=== PATIENT | female | born 1970 | race Caucasian/White ===

== ENCOUNTER 2019-11-28 11:58 | Inpatient (IN) | payer OTHER, SELFPAY ==
[2019-11-28] VITALS (14 sets, daily range): BP systolic 95–140; BP diastolic 40–81; PULSE 90–110; RESP 16–20; TEMP 36.1–36.6; O2SAT 92–100; BMI 53.8
--- NOTE | ~2019-11-28 | US_ITS ---
US breast RT limited 11/29/2019 09:25 Indication: Right breast erythema Procedure: High-resolution ultrasound of the right breast Comparison: No prior studies for comparison. Findings: In the area of palpable concern at 3:00, 3 cm from the nipple, there is an ill-defined hypo echoic area superficially, likely representing phlegmonous change. No discrete mass or fluid collecti on. No evidence for abscess. Impression: 1: Ill-defined hypoechoic area in the area of palpable concern, likely phlegmonous/inflammatory farrell e. No discrete abscess. Recommend follow-up ultrasound in 3 months to assess for resolution following appropriate therapy. BI-RADS CATEGORY 3-PROBABLY BENIGN FINDING Reviewed, dictated and finalized at location A. Impression: 1: Ill-defined hypoechoic area in the area of palpable concern, likely phlegmon ous/inflammatory change. No discrete abscess. Recommend follow-up ultrasound in 3 months to assess for resolution following appropriate therapy. BI-RADS CATEGORY 3-PROBABLY BENIGN FINDING
--- NOTE | ~2019-11-28 | US_ITS ---
EXAMINATION: US soft tissue buttock RT EXAM DATE: 11/30/2019 10:32 INDICATION: Erythematous tender nodule. TECHNIQUE: Multiple grayscale and Doppler images of the symptomatic right buttock. were obtained (by a technologist who performed the scan) and subsequently reviewed. There is no prior study for compar nan. FINDINGS: Scanning in the area of clinical concern right buttock demonstrates very superficial region measuring 1.7 cm diameter by 6 mm thickness which is peripherally hypoechoic, centrally isoechoic and has scat tered echogenic foci without dirty shadowing. This is nonspecific soft tissue region. Most of the brenda tral echogenicity matches the other subcutaneous fat. No internal vascularity specifically demonstrat ed. IMPRESSION: Small subcutaneous nonspecific soft tissue region. Could be small region of fat necrosis, focal phlegmonous region, or less likely ectopic soft tissue. Clinical correlation. No abscess. Reviewed, dictated and finalized at location A. IMPRESSION: Small subcutaneous nonspecific soft tissue region. Could be small r egion of fat necrosis, focal phlegmonous region, or less likely ectopic soft ti ssue. Clinical correlation. No abscess.
--- NOTE | 2019-11-28 12:06 | ECG_ITS ---
Measurements Intervals [place] Rate: 110 P: 31 WI: 164 QRS: -39 QRSD: 85 T: 16 QT: 325 QTc: 440 Interpretive Statements SINUS TACHYCARDIA LOW QRS VOLTAGE IN PRECORDIAL LEADS CONSIDER INFERIOR INFARCT, AGE INDETERMINATE EXTENSIVE ANTERIOR INFARCT, AGE INDETERMINATE HIGH LATERAL INFARCT, AGE INDETERMINATE ABNORMAL ECG Electronically Signed On 11-28-2019 16:25:14 CDT by Ever Ferrera D.O.
[2019-11-28 12:09] LABS: Glucose Point of Care 442 (65-105)
--- NOTE | 2019-11-28 12:10 | ED.RECABL ---
HPI - Recheck/Abnormal Lab/Rx General Chief Complaint: Recheck/Abnormal Lab/Rx Stated Complaint: cant sleep/poor appetite Time Seen by Provider: 11/28/19 12:02 History of Present Illness HPI narrative: Sent in by her PCP for critical labs. She denies any symptoms and does not know what labs were done. She saw her PCP for a yeast infection of a few months and had labs drawn 4 days ago. She believes that the labs were related to her blood sugar. She has a h/o type 2 DM, currently untreated. Related Data Home Medications Medication Instructions Recorded Confirmed atorvastatin 80 mg PO DAILY 11/28/19 11/28/19 clopidogrel 75 mg PO DAILY 11/28/19 11/28/19 ergocalciferol (vitamin D2) 50,000 unit PO DAILY 11/28/19 11/28/19 [Vitamin D2] losartan 100 mg PO DAILY 11/28/19 11/28/19 Allergies Allergy/AdvReac Type Severity Reaction Status Date / Time No Known Allergies Allergy Mild Unverified 11/28/19 12:10 Review of Systems Review of Systems: All systems reviewed & are unremarkable except as noted in HPI and below Constitutional: Constitutional: Denies fever(s) Cardiovascular: Cardiovascular: Denies chest pain Respiratory: Respiratory: Denies dyspnea Gastrointestinal: Gastrointestinal: Denies abdominal pain, Denies nausea and Denies vomiting Genitourinary: Genitourinary: Denies dysuria and Reports vaginal discharge Neurologic: Denies numbness and Denies weakness Endocrine: Endocrine: Denies polydipsia and Denies polyuria [facility] Past Medical History Medical History Diabetes mellitus Family History Family History Mother Family history of heart disease in male family member before age 55 Other Cerebrovascular accident Diabetes mellitus Family history of malignant neoplasm Hypertension Social History Social History Alcohol intake: never Gender identity (if verbalized by the patient): Female Exam Const: General: no acute distress and alert Nutritional Appearance: obese morbidly obese Orientation/consciousness: patient oriented x3 HENMT: Head: normal to inspection Neck: Neck: normal visual inspection and no lymphadenopathy Chest: Chest palpation & inspection: no tenderness Other: 2 cm area of erythema and enduration to right breast. Resp: Effort & Inspection: normal respiratory effort Auscultation: clear to auscultation bilaterally, no rales, no rhonchi and no wheezes Cardio: Jugular venous distension: no JVD Rate: regular rate Rhythm: regular rhythm Heart sounds: no murmurs GI: Inspection: non-distended GI Palp: Yes Soft to palpation and No Tenderness to palpation present (GI) Skin: General skin exam: normal color Neuro: General: patient oriented x3 and moves all extremities Speech: normal speech Extrem: General: no edema Psych: Appearance: well kempt Affect: normal affect Course Vital Signs Vital signs: Vital Signs Temperature 36.5 C 11/28/19 12:03 Pulse Rate 106 H 11/28/19 12:03 Temperature 36.5 C 11/28/19 12:03 Pulse Rate 90 11/28/19 16:56 Respiratory Rate 16 11/28/19 16:56 Blood Pressure 103/62 11/28/19 16:56 Pulse Oximetry 96 11/28/19 16:56 Procedures Abscess I/D chest: Date of Incision: 11/28/19 Time of Incision: 14:36 Side (if applicable): right Local Anesthetic: lidocaine 1% and with epi Amount of anesthesia used (mL): 3 Technique: needle aspiration Amount of fluid expressed (mL): 2 Irrigation: No Packing used?: none I&D Results: Pus MDM - Recheck/Abnormal Lab/Rx MDM Narrative Medical decision making narrative: She has significantly elevated glucose with breast abscess and yeast infection, bth are likely complications of her untreated DM. I will plan to admit so she can have treatment for her diabet
[2019-11-28 12:31] LABS: Basophils Percent Auto 0.4 % (0.2-1.2); Eosinophils Absolute Auto 0.1 K/mm3 (0-0.3); Eosinophils Percent Auto 0.8 % (0-4.4); Hematocrit 47.1 % (37.0-47.0); Hemoglobin 15.4 g/dL (12.0-15.0); Immature Granulocyte Absolute 0.02 K/mm3 (0.00-0.031); Immature Granulocyte Percent A 0.2 % (0-0.5); Lymphocytes Absolute Auto 1.99 K/mm3 (0.9-3.2); Lymphocytes Percent Auto 21.6 % (18.3-44.2); Mean Corpuscular HGB Conc 32.7 g/dl (32-36); Mean Corpuscular Hemoglobin 29.2 pg (26-34); Mean Corpuscular Volume 89.2 fl (80-100); Monocytes Absolute Auto 0.9 K/mm3 (0.1-0.6); Monocytes Percent Auto 9.8 % (2.6-8.5); Neutrophils Absolute Auto 6.2 K/mm3 (1.3-6.7); Neutrophils Percent Auto 67.2 % (45.5-73.1); Platelet Count Result 291 k/mm3 (150-375); Red Blood Count 5.28 M/mm3 (4.2-5.4); Red Cell Distribution Width 14.2 % (11.5-14.5); White Blood Count 9.2 K/mm3 (4.5-10.0)
[2019-11-28 12:42] LABS: Lactic Acid Reflex 1.6 mmol/L (0.7-2.1)
[2019-11-28 12:43] LABS: Alanine Aminotransferase 36 U/L (4-35); Alkaline Phosphatase 119 U/L (38-126); Anion Gap 15.2 mmol/L (7-16); Aspartate Amino Transferase 28 U/L (14-36); Blood Urea Nitrogen 13 mg/dL (7-17); Calcium 10.5 mg/dL (8.4-10.2); Carbon Dioxide 30 mmol/L (22-30); Chloride 91 mmol/L (98-107); Estimated CRCL calculation 131 ml/min; Estimated Glomerular Filt Rate > 60; Glucose 420 mg/dL (65-105); Potassium 4.2 mmol/L (3.4-5.0); Sodium 132 mmol/L (137-145)
[2019-11-28] MEDS: SODIUM CHLORIDE 0.9% IV 1,000 ML 999 ML IV CONT (12:53)
[2019-11-28 12:55] LABS: Beta-Hydroxybutyrate/Acetoacetate 2.26 mmol/L (0.02-0.27)
[2019-11-28 13:08] LABS: Add Urine Microscopic? YES; Appearance Urine Cloudy (Clear); Bacteria Urine Trace /hpf; Bilirubin Urine Negative (Negative); Blood Urine 2+ (Negative); Budding Yeast Urine Present /hpf; Color Urine Straw (Yellow); Glucose Urine UA 3+ mg/dL (Negative); Ketones Urine 1+ mg/dL (Negative); Leukocyte Esterase Ur 1+ LEU/UL (Negative); Nitrate Urine Negative (Negative); Protein Urine Negative (Negative); Specific Grav Ur 1.031 (1.001-1.035); Squamous Epithelial Cell Urine Many /hpf (Few); Urobilinogen Urine Negative mg/dL (<2.0); WBC Urine 16-20 /hpf
[2019-11-28] MEDS: LACTATED RINGERS 1,000 ML 125 ML IV CONT (15:34)
[2019-11-28] MEDS: INSULIN HUMAN REGULAR (*BKC) 100 UNITS/ML 10 UNITS IV PUSH (16:52)
[2019-11-28 17:02] LABS: Glucose Point of Care 367 (65-105)
--- NOTE | 2019-11-28 17:19 | ADMGEN ---
This patient, Lacey Elias, was admitted to Medical Room 243-. Patient/family oriented to hospital policies and general routines including ID bracelet, bed and alarms, visiting hours, pain management, procedures, bathroom and other care routines, personal items, smoking policy, room service/diet, and visiting hours. Valuables list has been completed. Information on how to activate the Rapid Response Team has been discussed. Patient/Family are encouraged to report perceived risks to care and to ask questions if they do not understand what they are told or what they should do.
[2019-11-28 18:16] LABS: Glucose Point of Care 248 (65-105)
--- NOTE | 2019-11-28 19:33 | PM.IMHP ---
H&P: HPI History of Present Illness Date/Time: 11/28/19 19:33 Chief complaint: diabetic hyperglycemia/breast abscess/yeast infect Narrative: Lacey Elias is a 49 year old female The patient came to the emergency room because she was having difficulty sleeping. She tells me that she had a phone conversation with her primary care office who then ordered some labs for her. She was told that her labs were abnormal today and that she needed to come to the emergency room. The patient stated that she has been doing dealing with I use infection in the vaginal area. She stated that she tried Monistat and also Diflucan and it did help but she has been itching quite frequently. She is also having urinary frequency and urgency. She stated that she has been thirst ear than normal. She also stated that she feels very hungry but nothing tastes good. She stated that she was diabetic about 4 -5 years ago when she went on a low concentrated sweet diet was taken off of her pills at that time. The patient stated that she has not been watching her diet and then she has been ordering food from [employer]-which is fast food. She stated that she has been eating a lot of pasta. She felt that she might have a blood sugar problem but had not been checking it. She also stated that she usually has pimples on her breast and that she just pop summer self and they go away. However she now has a pimple at the 3 o'clock position on the right breast. The patient tells me that the ER doctor drained with a needle. No culture was obtained at that time. There is no drainage at this time. The area is red and may be about quarter-size. She was started on vancomycin and I added Primaxin. Her white count is normal. However her blood sugar was noted to be 440 to in the and 367 and in the last 248. It was reported that her anion gap was 11. Her behop was noted to be 2.26. The patient was started on IV fluids. She was given 10 units of regular insulin IV and IV bolus of normal saline. I have spent approximately 1 hour the patient date of service is 11/28/2019 Review of Systems Review of Systems: All systems reviewed & are unremarkable except as noted in HPI and below Constitutional: Constitutional: Reports as per HPI and Reports no additional constitutional complaints Eyes: Eyes: Reports as per HPI and Reports no additional eye complaints ENT: Reports system reviewed and no additional complaints, except as documented and Reports Normal hearing present Cardiovascular: Cardiovascular: Reports no additional cardiovascular complaints Respiratory: Respiratory: Reports no additional respiratory complaints and Reports no additional respiratory complaints Gastrointestinal: Gastrointestinal: Reports as per HPI and Reports no additional gastrointestinal complaints Musculoskeletal: Musculoskeletal: Reports no additional musculoskeletal complaints Integumentary/Breasts: Skin/Breast: Reports system reviewed and no additional complaints, except as docu and Reports as per HPI Neurologic: Reports system reviewed and no additional complaints, except as documented, Reports as per HPI and Reports Normal hearing present Psychiatric: Psychiatric: Reports no additional psychiatric complaints and Reports as per HPI Endocrine: Endocrine: Reports no additional endocrine complaints Hematologic/Lymphatic: Hematologic/Lymphatic: Reports no additional hematologic/lymphatic complaints Allergic/Immunologic: Allergic/Immunologic: Reports no additional allergic/immunologic complaints [facility] Past Medical History Medical History (Updated 11/28/19 @ 19:57 by Vaishali Burr NP) CAD (coronary artery disease) Diabetes mellitus History of 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
[2019-11-28] MEDS: IMIPENEM/CILASTATIN SODIUM 250 MG in DEXTROSE 5% 100 ML 300 MG IVPB (20:00)
[2019-11-28] MEDS: FLUCONAZOLE 150 MG TABLET PO (20:00)
[2019-11-28] MEDS: MICONAZOLE NITRATE 2% VAGINAL CREAM 45 GM TUBE 1 APPFUL VAGINAL (20:01)
[2019-11-28 20:36] LABS: Glucose Point of Care 335 (65-105)
[2019-11-28] MEDS: ATORVASTATIN 40 MG TABLET 80 MG PO (22:04)
[2019-11-29] MEDS: IMIPENEM/CILASTATIN SODIUM 250 MG in DEXTROSE 5% 100 ML 300 MG IVPB ×4 (01:38→23:33)
[2019-11-29 05:07] LABS: Basophils Percent Auto 0.1 % (0.2-1.2); Eosinophils Absolute Auto 0.1 K/mm3 (0-0.3); Eosinophils Percent Auto 1.4 % (0-4.4); Hematocrit 40.3 % (37.0-47.0); Hemoglobin 13.2 g/dL (12.0-15.0); Immature Granulocyte Absolute 0.03 K/mm3 (0.00-0.031); Immature Granulocyte Percent A 0.4 % (0-0.5); Lymphocytes Percent Auto 26.8 % (18.3-44.2); Mean Corpuscular HGB Conc 32.8 g/dl (32-36); Mean Corpuscular Hemoglobin 29.4 pg (26-34); Mean Corpuscular Volume 89.8 fl (80-100); Mean Platelet Volume 11.7 fl (7.4-10.4); Monocytes Absolute Auto 0.6 K/mm3 (0.1-0.6); Neutrophils Absolute Auto 4.4 K/mm3 (1.3-6.7); Neutrophils Percent Auto 62.3 % (45.5-73.1); Platelet Count Result 238 k/mm3 (150-375); Red Blood Count 4.49 M/mm3 (4.2-5.4); Red Cell Distribution Width 14.4 % (11.5-14.5); White Blood Count 7.1 K/mm3 (4.5-10.0)
[2019-11-29 05:20] LABS: Alanine Aminotransferase 26 U/L (4-35); Albumin Level 2.9 g/dL (3.5-5.1); Alkaline Phosphatase 77 U/L (38-126); Anion Gap 13.8 mmol/L (7-16); Aspartate Amino Transferase 23 U/L (14-36); Bilirubin,Total 0.8 mg/dL (0.2-1.3); Blood Urea Nitrogen 8 mg/dL (7-17); Calcium 8.4 mg/dL (8.4-10.2); Carbon Dioxide 26 mmol/L (22-30); Chloride 96 mmol/L (98-107); Estimated CRCL calculation 153 ml/min; Estimated Glomerular Filt Rate > 60; Glucose 317 mg/dL (65-105); Magnesium 1.8 mg/dL (1.6-2.3); Potassium 3.8 mmol/L (3.4-5.0); Sodium 132 mmol/L (137-145)
[2019-11-29 05:21] LABS: Hemoglobin A1C > 14.0 % (<5.7)
[2019-11-29 06:00] VITALS: BP 136/72; PULSE 81; RESP 20; TEMP 36.4; O2SAT 96
[2019-11-29 07:08] LABS: Thyroid Stimulating Hormone Reflex 0.709 uIU/mL (0.465-4.68)
[2019-11-29 08:00] LABS: Hematocrit 41.2 % (37.0-47.0); Hemoglobin 13.7 g/dL (12.0-15.0); Mean Corpuscular HGB Conc 33.3 g/dl (32-36); Mean Corpuscular Hemoglobin 29.7 pg (26-34); Mean Corpuscular Volume 89.2 fl (80-100); Mean Platelet Volume 11.3 fl (7.4-10.4); Platelet Count Result 222 k/mm3 (150-375); Red Blood Count 4.62 M/mm3 (4.2-5.4); Red Cell Distribution Width 14.4 % (11.5-14.5); White Blood Count 6.7 K/mm3 (4.5-10.0)
[2019-11-29 08:02] LABS: Glucose Point of Care 304 (65-105)
[2019-11-29 08:13] LABS: Anion Gap 12.8 mmol/L (7-16); Blood Urea Nitrogen 7 mg/dL (7-17); Calcium 8.6 mg/dL (8.4-10.2); Carbon Dioxide 27 mmol/L (22-30); Chloride 95 mmol/L (98-107); Estimated CRCL calculation 153 ml/min; Estimated Glomerular Filt Rate > 60; Glucose 307 mg/dL (65-105); Potassium 3.8 mmol/L (3.4-5.0); Sodium 131 mmol/L (137-145)
[2019-11-29] MEDS: ASPIRIN 81 MG ENTERIC TABLET PO (08:32)
[2019-11-29] MEDS: CLOPIDOGREL BISULFATE 75 MG TABLET PO (08:32)
[2019-11-29] MEDS: LOSARTAN POTASSIUM 100 MG TABLET PO (08:32)
[2019-11-29] MEDS: INSULIN GLARGINE (*BKC) 100 UNITS/ML 21 UNITS SUB-Q (08:36)
[2019-11-29] MEDS: INSULIN ASPART (*BKC) 100 UNITS/ML SUB-Q ×3 (08:38→18:43)
[2019-11-29] MEDS: metFORMIN HCL 500 MG TABLET PO ×2 (09:10→18:44)
[2019-11-29] MEDS: IMIPENEM/CILASTATIN SODIUM 250 MG in DEXTROSE 5% 100 ML 200 MG IVPB (12:02)
[2019-11-29] MEDS: MULTIVITAMINS /C LUTEIN (CENTRUM SILVER) TABLET *BKC 1 TAB PO (12:03)
[2019-11-29 12:06] LABS: Glucose Point of Care 310 (65-105)
--- NOTE | 2019-11-29 13:37 | PM.IMPN ---
Progress Note: A&P Assessment and Plan (1) Mastitis, right, acute: Code(s): N61.0 - Mastitis without abscess Status: Acute Assessment and Plan: no abscess by ultrasound continue vancomycin and Primaxin as she is improving clinically (2) CAD (coronary artery disease): Qualifiers: Coronary Disease-Associated Artery/Lesion type: [place] artery [place] vs. transplanted heart: [place] heart Associated angina: without angina Qualified Code(s): I25.10 - Atherosclerotic heart disease of [place] coronary artery without angina pectoris Code(s): I25.10 - Atherosclerotic heart disease of [place] coronary artery without angina pectoris Status: Chronic Assessment and Plan: currently without symptoms (3) Hypertension: Qualifiers: Hypertension type: unspecified Qualified Code(s): I10 - Essential (primary) hypertension Code(s): I10 - Essential (primary) hypertension Status: Chronic Assessment and Plan: controlled (4) Yeast infection: Code(s): B37.9 - Candidiasis, unspecified Status: Acute Assessment and Plan: fluconazole given 11/27 (5) Diabetes mellitus with hyperglycemia: Qualifiers: Diabetes mellitus [facility] insulin use: without buttermaker helper use Diabetes mellitus type: type 2 Qualified Code(s): E11.65 - Type 2 diabetes mellitus with hyperglycemia Code(s): E11.65 - Type 2 diabetes mellitus with hyperglycemia Status: Chronic Assessment and Plan: diabetic diet basal and sliding scale insulin with metformin Subjective Date/time seen: 11/29/19 13:37 Interval history: Admitted 11/27 for right breast abscess. Needle drainage in ED. U/s done today. Denied pain. No cp or sob. Legs were swollen. Better now. Does have vaginal itching. Mild dysuria. Hx chronic yeast infection. Review of Systems Review of Systems: All systems reviewed & are unremarkable except as noted in HPI and below Exam Narrative: Exam Narrative: HEENT: EOMI, PERRL, sclerae nonicteric, pharyngeal mucosa pink and intact NECK: No JVD CHEST: Clear to auscultation. Normal effort. HEART: NL S1/S2, regular ABDOMEN: BS+, soft, nontender, no mass, no bruits EXTREMITIES: No cyanosis, 1+ Pretibial edema NEUROLOGIC: CN intact and symmetric to inspection. MUSCULOSKELETAL: Tone and strength symmetric. PSYCH: Alert. Oriented to person, place, and time. SKIN: about 2cm erythematous, minimally tender nodule right breast with dried serosanguinous discharge with small puncture wound at apex Objective Data Vital Signs Vital Signs: Vital Signs - 24 hr 11/28/19 13:47 11/28/19 14:00 11/28/19 14:15 Temperature Pulse Rate 97 95 Respiratory Rate 17 16 Blood Pressure 102/68 95/62 L 97/56 L Pulse Oximetry 99 92 11/28/19 14:30 11/28/19 15:00 11/28/19 16:56 Temperature Pulse Rate 95 90 90 Respiratory Rate 18 17 16 Blood Pressure 99/62 L 106/40 L 103/62 Pulse Oximetry 96 95 96 11/28/19 17:10 11/28/19 22:00 11/29/19 06:00 Temperature 97.0 F L 97.8 F 97.6 F Pulse Rate 100 96 81 Respiratory Rate 18 20 20 Blood Pressure 138/72 140/70 136/72 Pulse Oximetry 100 95 96 Intake/Output Intake/Output: Intake & Output 11/26/19 11/27/19 11/28/19 11/29/19 23:59 23:59 23:59 23:59 Intake Total 1840 1560 Output Total 1750 Balance 1840 -190 Meds/Results Medications: Active Medications Generic Name Dose Route Start Last Admin Trade Name Freq PRN Reason Stop Dose Admin Aspirin 81 mg 11/29/19 09:00 11/29/19 08:32 Aspirin Ec PO 81 mg DAILY QUINN Administration Atorvastatin Calcium 80 mg 11/28/19 21:00 11/28/19 22:04 Lipitor PO 80 mg HS QUINN Administration Clopidogrel Bisulfate 75 mg 11/29/19 09:00 11/29/19 08:32 Plavix PO 75 mg DAILY QUINN Administration Dextrose 12.5 gm 11/28/19 19:37 Dextrose 50% Syringe IV PUSH PRN PRN Hypoglycemia Protocol Ergocalcifero
[2019-11-29 14:00] VITALS: BP 111/62; PULSE 88; RESP 22; TEMP 36.6; O2SAT 95
[2019-11-29 18:20] LABS: Glucose Point of Care 295 (65-105)
[2019-11-29] MEDS: ATORVASTATIN 40 MG TABLET 80 MG PO (20:21)
[2019-11-29] MEDS: MICONAZOLE NITRATE 2% VAGINAL CREAM 45 GM TUBE 1 APPFUL VAGINAL (20:22)
[2019-11-29 20:46] LABS: Glucose Point of Care 337 (65-105)
[2019-11-29 22:00] VITALS: BP 116/61; PULSE 95; RESP 20; TEMP 36.2; O2SAT 95
[2019-11-30 02:28] LABS: Hemoglobin 13.3 g/dL (12.0-15.0); Mean Corpuscular HGB Conc 32.4 g/dl (32-36); Mean Corpuscular Hemoglobin 29.2 pg (26-34); Mean Corpuscular Volume 89.9 fl (80-100); Platelet Count Result 246 k/mm3 (150-375); Red Blood Count 4.56 M/mm3 (4.2-5.4); Red Cell Distribution Width 14.4 % (11.5-14.5); White Blood Count 7.2 K/mm3 (4.5-10.0)
[2019-11-30 02:38] LABS: Anion Gap 10.5 mmol/L (7-16); Blood Urea Nitrogen 9 mg/dL (7-17); Calcium 8.5 mg/dL (8.4-10.2); Carbon Dioxide 29 mmol/L (22-30); Chloride 97 mmol/L (98-107); Estimated CRCL calculation 130 ml/min; Estimated Glomerular Filt Rate > 60; Glucose 340 mg/dL (65-105); Potassium 3.5 mmol/L (3.4-5.0); Sodium 133 mmol/L (137-145)
[2019-11-30 03:08] LABS: Vancomycin Trough 12.1 ug/mL (10.0-20.0)
[2019-11-30 05:56] VITALS: BP 116/61; PULSE 94; RESP 20; TEMP 35.9; O2SAT 94
[2019-11-30] MEDS: IMIPENEM/CILASTATIN SODIUM 250 MG in DEXTROSE 5% 100 ML 300 MG IVPB ×4 (06:09→23:58)
[2019-11-30 08:08] LABS: Glucose Point of Care 309 (65-105)
[2019-11-30] MEDS: INSULIN ASPART (*BKC) 100 UNITS/ML SUB-Q ×6 (08:21→16:49)
[2019-11-30] MEDS: ASPIRIN 81 MG ENTERIC TABLET PO (08:23)
[2019-11-30] MEDS: CLOPIDOGREL BISULFATE 75 MG TABLET PO (08:23)
[2019-11-30] MEDS: metFORMIN HCL 500 MG TABLET PO ×2 (08:23→16:48)
[2019-11-30] MEDS: INSULIN GLARGINE (*BKC) 100 UNITS/ML 28 UNITS SUB-Q (08:24)
[2019-11-30] MEDS: LOSARTAN POTASSIUM 100 MG TABLET PO (08:25)
[2019-11-30] MEDS: MULTIVITAMINS /C LUTEIN (CENTRUM SILVER) TABLET *BKC 1 TAB PO (08:25)
--- NOTE | 2019-11-30 09:34 | P.PNIM_ITS ---
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 She reports she has a history of pre diabetes and had been on metformin in the past. A1c >14.0. Fasting blood sugar is elevated at 340 today. No evidence of metabolic acidosis. * increase Lantus to 20 units daily * add scheduled NovoLog 5 units with meals * continue metformin * continue sliding scale insulin, Accu-Cheks, and hypoglycemia protocol * continue diabetic diet * consult has been placed a dietitian and certified breastfeeding educator. Recommendations are appreciated. (2) Mastitis, right, acute: Code(s): N61.0 - Mastitis without abscess Status: Acute Assessment and Plan: Underwent incision and drainage by ED physician on 11/27. No evidence of abscess by ultrasound. * continue vancomycin and Primaxin as she is improving clinically (3) Nodule of buttock: Code(s): R22.2 - Localized swelling, mass and lump, trunk Status: Acute Assessment and Plan: Approximately quarter-sized erythematous, tender nodule, similar in appearance to breast nodule in right gluteal sulcus. No drainage or pus. * Wound care consult has been ordered and recommendations are appreciated * will check ultrasound of area to evaluate for abscess or fluid which may need to be drained * continue to monitor the area closely (4) Urinary tract infection: Qualifiers: Urinary tract infection type: acute cystitis Hematuria presence: with hematuria Qualified Code(s): N30.01 - Acute cystitis with hematuria Code(s): N39.0 - Urinary tract infection, site not specified Status: Acute Assessment and Plan: Urine culture is positive for E coli. She is afebrile and without leukocytosis. * continue Primaxin which is appropriate based on sensitivity report. Initiated on 11/27 (5) Hypertension: Qualifiers: Hypertension type: unspecified Qualified Code(s): I10 - Essential (primary) hypertension Code(s): I10 - Essential (primary) hypertension Status: Chronic Assessment and Plan: BP has been well controlled. * Continue losartan (6) Yeast infection: Code(s): B37.9 - Candidiasis, unspecified Status: Acute Assessment and Plan: Probably secondary to uncontrolled blood sugars. She was given a dose of fluconazole on 11/27. * Continue miconazole vaginal applicator (7) CAD (coronary artery disease): Qualifiers: Coronary Disease-Associated Artery/Lesion type: [place] artery [place] vs. transplanted heart: [place] heart Associated angina: without angina Qualified Code(s): I25.10 - Atherosclerotic heart disease of [place] coronary artery without angina pectoris Code(s): I25.10 - Atherosclerotic heart disease of [place] coronary artery without angina pectoris Status: Chronic Assessment and Plan: Stable and currently without symptoms. * Continue aspirin, Plavix, losartan, and atorvastatin Subjective Date/time seen: 11/30/19 09:34 Interval history: Date of service: 11/30/2019 Assuming care for Ms. Elias who has been newly diagnosed with type 2 diabetes
--- NOTE | 2019-11-30 09:34 | PM.IMPN ---
Progress Note: A&P Assessment and Plan (1) Diabetes mellitus with hyperglycemia: Qualifiers: Diabetes mellitus long term care phlebotomist insulin use: without long term care phlebotomist use Diabetes mellitus type: type 2 Qualified Code(s): E11.65 - Type 2 diabetes mellitus with hyperglycemia Code(s): E11.65 - Type 2 diabetes mellitus with hyperglycemia Status: Chronic Assessment and Plan: New diagnosis. She reports she has a history of pre diabetes and had been on metformin in the past. A1c >14.0. Fasting blood sugar is elevated at 340 today. No evidence of metabolic acidosis. increase Lantus to 20 units daily add scheduled NovoLog 5 units with meals continue metformin continue sliding scale insulin, Accu-Cheks, and hypoglycemia protocol continue diabetic diet consult has been placed a dietitian and telehealth nurse educator. Recommendations are appreciated. (2) Mastitis, right, acute: Code(s): N61.0 - Mastitis without abscess Status: Acute Assessment and Plan: Underwent incision and drainage by ED physician on 11/27. No evidence of abscess by ultrasound. continue vancomycin and Primaxin as she is improving clinically (3) Nodule of buttock: Code(s): R22.2 - Localized swelling, mass and lump, trunk Status: Acute Assessment and Plan: Approximately quarter-sized erythematous, tender nodule, similar in appearance to breast nodule in right gluteal sulcus. No drainage or pus. Wound care consult has been ordered and recommendations are appreciated will check ultrasound of area to evaluate for abscess or fluid which may need to be drained continue to monitor the area closely (4) Urinary tract infection: Qualifiers: Urinary tract infection type: acute cystitis Hematuria presence: with hematuria Qualified Code(s): N30.01 - Acute cystitis with hematuria Code(s): N39.0 - Urinary tract infection, site not specified Status: Acute Assessment and Plan: Urine culture is positive for E coli. She is afebrile and without leukocytosis. continue Primaxin which is appropriate based on sensitivity report. Initiated on 11/27 (5) Hypertension: Qualifiers: Hypertension type: unspecified Qualified Code(s): I10 - Essential (primary) hypertension Code(s): I10 - Essential (primary) hypertension Status: Chronic Assessment and Plan: BP has been well controlled. Continue losartan (6) Yeast infection: Code(s): B37.9 - Candidiasis, unspecified Status: Acute Assessment and Plan: Probably secondary to uncontrolled blood sugars. She was given a dose of fluconazole on 11/27. Continue miconazole vaginal applicator (7) CAD (coronary artery disease): Qualifiers: Coronary Disease-Associated Artery/Lesion type: [place] artery [place] vs. transplanted heart: [place] heart Associated angina: without angina Qualified Code(s): I25.10 - Atherosclerotic heart disease of [place] coronary artery without angina pectoris Code(s): I25.10 - Atherosclerotic heart disease of [place] coronary artery without angina pectoris Status: Chronic Assessment and Plan: Stable and currently without symptoms. Continue aspirin, Plavix, losartan, and atorvastatin Subjective Date/time seen: 11/30/19 09:34 Interval history: Date of service: 11/30/2019 Assuming care for Ms. Elias who has been newly diagnosed with type 2 diabetes and had a breast abscess drained in the ED. She is feeling well today. She does complain of a pimple on her right leg near her buttocks that she states is very tender. She noticed the area several days ago, but has not mentioned anything about it until this time. She says it seems like the same pimple that she saw on her breast. She denies any fevers, chills, nausea, vomiting, dizziness, or lightheadedness. Her blood sugars have remained
[2019-11-30 11:51] LABS: Glucose Point of Care 228 (65-105)
[2019-11-30] MEDS: polyethylene glycoL 3350 17 GM POWD.PACK PO (12:00)
[2019-11-30 14:00] VITALS: BP 104/55; PULSE 88; RESP 18; TEMP 36; O2SAT 95
[2019-11-30 16:38] LABS: Glucose Point of Care 248 (65-105)
[2019-11-30] MEDS: DOCUSATE SODIUM 100 MG CAPSULE PO (20:28)
[2019-11-30] MEDS: ATORVASTATIN 40 MG TABLET 80 MG PO (20:28)
[2019-11-30] MEDS: MICONAZOLE NITRATE 2% VAGINAL CREAM 45 GM TUBE 1 APPFUL VAGINAL (20:28)
[2019-11-30 21:09] LABS: Glucose Point of Care 174 (65-105)
[2019-11-30 22:00] VITALS: BP 105/60; PULSE 93; RESP 18; TEMP 36.1; O2SAT 96
[2019-12-01 06:00] VITALS: BP 119/50; PULSE 86; RESP 18; TEMP 36.3; O2SAT 96
[2019-12-01] MEDS: IMIPENEM/CILASTATIN SODIUM 250 MG in DEXTROSE 5% 100 ML 300 MG IVPB ×3 (06:21→18:45)
[2019-12-01 06:34] LABS: Hematocrit 41.4 % (37.0-47.0); Hemoglobin 13.3 g/dL (12.0-15.0); Mean Corpuscular HGB Conc 32.1 g/dl (32-36); Mean Corpuscular Volume 90.4 fl (80-100); Mean Platelet Volume 11.3 fl (7.4-10.4); Platelet Count Result 240 k/mm3 (150-375); Red Blood Count 4.58 M/mm3 (4.2-5.4); Red Cell Distribution Width 14.3 % (11.5-14.5); White Blood Count 6.2 K/mm3 (4.5-10.0)
[2019-12-01 06:47] LABS: Anion Gap 7.9 mmol/L (7-16); Blood Urea Nitrogen 6 mg/dL (7-17); Calcium 8.3 mg/dL (8.4-10.2); Carbon Dioxide 28 mmol/L (22-30); Chloride 101 mmol/L (98-107); Estimated CRCL calculation 153 ml/min; Estimated Glomerular Filt Rate > 60; Glucose 288 mg/dL (65-105); Potassium 3.9 mmol/L (3.4-5.0); Sodium 133 mmol/L (137-145)
[2019-12-01 07:28] LABS: Glucose Point of Care 285 (65-105)
[2019-12-01 07:42] LABS: Glucose Point of Care 289 (65-105)
[2019-12-01] MEDS: INSULIN ASPART (*BKC) 100 UNITS/ML SUB-Q ×5 (07:43→16:56)
[2019-12-01] MEDS: metFORMIN HCL 500 MG TABLET PO ×2 (07:51→16:55)
[2019-12-01] MEDS: ASPIRIN 81 MG ENTERIC TABLET PO (07:51)
[2019-12-01] MEDS: CLOPIDOGREL BISULFATE 75 MG TABLET PO (07:51)
[2019-12-01] MEDS: MULTIVITAMINS /C LUTEIN (CENTRUM SILVER) TABLET *BKC 1 TAB PO (07:52)
[2019-12-01] MEDS: LOSARTAN POTASSIUM 100 MG TABLET PO (07:52)
[2019-12-01] MEDS: DOCUSATE SODIUM 100 MG CAPSULE PO ×2 (07:52→21:53)
[2019-12-01] MEDS: polyethylene glycoL 3350 17 GM POWD.PACK PO (07:53)
[2019-12-01] MEDS: INSULIN GLARGINE (*BKC) 100 UNITS/ML 28 UNITS SUB-Q (07:54)
--- NOTE | 2019-12-01 10:26 | P.PNIM_ITS ---
Progress Note: A&P Assessment and Plan (1) Diabetes mellitus with hyperglycemia: Qualifiers: Diabetes mellitus buttermaker helper insulin use: without nursing home use Diabetes mellitus type: type 2 Qualified Code(s): E11.65 - Type 2 diabetes mellitus with hyperglycemia Code(s): E11.65 - Type 2 diabetes mellitus with hyperglycemia Status: Chronic Assessment and Plan: New diagnosis. She reports she has a history of pre diabetes and had been on metformin in the past. A1c >14.0. Fasting blood sugar improved today. No evidence of metabolic acidosis. * continue Lantus to 28 units daily * continue scheduled NovoLog 5 units with meals * continue metformin * continue sliding scale insulin, Accu-Cheks, and hypoglycemia protocol * continue diabetic diet * consult has been placed a dietitian and nursing educator. Recommendations are appreciated. (2) Open wound of thigh: Qualifiers: Encounter type: initial encounter Laterality: right Qualified Code(s): S71.101A - Unspecified open wound, right thigh, initial encounter Code(s): S71.109A - Unspecified open wound, unspecified thigh, initial encounter Status: Acute Assessment and Plan: She has approximately quarter-sized erythematous, tender nodule in gluteal sulcus with centralized necrosis. There is no drainage or purulence. Ultrasound did not show definitive abscess. Suspect this is related to her uncontrolled DM. * Wound care consult has been ordered and recommendations are appreciated * Place consult to general surgery for possible debridement of wound. Appreciate recommendations. * Would culture is not obtainable at this time as there is no drainage * Continue IV primaxin and vancomycin (3) Mastitis, right, acute: Code(s): N61.0 - Mastitis without abscess Status: Acute Assessment and Plan: Right breast approximately dime sized nodule for which she underwent I&D by ED physician on 11/27. She now has a similar formation on the left breast in the axillary region. * Wound care is following and recommendations are appreciated * Continue IV antibiotics at this time (4) Urinary tract infection: Qualifiers: Hematuria presence: with hematuria Urinary tract infection type: acute cystitis Qualified Code(s): N30.01 - Acute cystitis with hematuria Code(s): N39.0 - Urinary tract infection, site not specified Status: Acute Assessment and Plan: Urine culture is positive for E coli. She is afebrile and without leukocytosis. * continue Primaxin which is appropriate based on sensitivity report. Initiated on 11/27 (5) Hypertension: Qualifiers: Hypertension type: unspecified Qualified Code(s): I10 - Essential (primary) hypertension Code(s): I10 - Essential (primary) hypertension Status: Chronic Assessment and Plan: BP has been well controlled. * Continue losartan (6) Yeast infection: Code(s): B37.9 - Candidiasis, unspecified Status: Acute Assessment and Plan: Probably secondary to uncontrolled blood sugars. She was given a dose of fluconazole on 11/27. * Continue miconazole vaginal applicator (day 4 of 7) (7) CAD (coronary artery disease): Qualifiers: Associated angina: without angina Coronary Disease-Associated Artery/Lesion type: [place] artery [place] vs. transplanted heart: [place] heart Qualified Code(s): I25.10 - Atherosclerotic heart disease of [place] coronary artery without angina [place]
--- NOTE | 2019-12-01 10:26 | PM.IMPN ---
Progress Note: A&P Assessment and Plan (1) Diabetes mellitus with hyperglycemia: Qualifiers: Diabetes mellitus intermediate accountant insulin use: without usp use Diabetes mellitus type: type 2 Qualified Code(s): E11.65 - Type 2 diabetes mellitus with hyperglycemia Code(s): E11.65 - Type 2 diabetes mellitus with hyperglycemia Status: Chronic Assessment and Plan: New diagnosis. She reports she has a history of pre diabetes and had been on metformin in the past. A1c >14.0. Fasting blood sugar improved today. No evidence of metabolic acidosis. continue Lantus to 28 units daily continue scheduled NovoLog 5 units with meals continue metformin continue sliding scale insulin, Accu-Cheks, and hypoglycemia protocol continue diabetic diet consult has been placed a dietitian and nurse educator. Recommendations are appreciated. (2) Open wound of thigh: Qualifiers: Encounter type: initial encounter Laterality: right Qualified Code(s): S71.101A - Unspecified open wound, right thigh, initial encounter Code(s): S71.109A - Unspecified open wound, unspecified thigh, initial encounter Status: Acute Assessment and Plan: She has approximately quarter-sized erythematous, tender nodule in gluteal sulcus with centralized necrosis. There is no drainage or purulence. Ultrasound did not show definitive abscess. Suspect this is related to her uncontrolled DM. Wound care consult has been ordered and recommendations are appreciated Place consult to general surgery for possible debridement of wound. Appreciate recommendations. Would culture is not obtainable at this time as there is no drainage Continue IV primaxin and vancomycin (3) Mastitis, right, acute: Code(s): N61.0 - Mastitis without abscess Status: Acute Assessment and Plan: Right breast approximately dime sized nodule for which she underwent I&D by ED physician on 11/27. She now has a similar formation on the left breast in the axillary region. Wound care is following and recommendations are appreciated Continue IV antibiotics at this time (4) Urinary tract infection: Qualifiers: Hematuria presence: with hematuria Urinary tract infection type: acute cystitis Qualified Code(s): N30.01 - Acute cystitis with hematuria Code(s): N39.0 - Urinary tract infection, site not specified Status: Acute Assessment and Plan: Urine culture is positive for E coli. She is afebrile and without leukocytosis. continue Primaxin which is appropriate based on sensitivity report. Initiated on 11/27 (5) Hypertension: Qualifiers: Hypertension type: unspecified Qualified Code(s): I10 - Essential (primary) hypertension Code(s): I10 - Essential (primary) hypertension Status: Chronic Assessment and Plan: BP has been well controlled. Continue losartan (6) Yeast infection: Code(s): B37.9 - Candidiasis, unspecified Status: Acute Assessment and Plan: Probably secondary to uncontrolled blood sugars. She was given a dose of fluconazole on 11/27. Continue miconazole vaginal applicator (day 4 of 7) (7) CAD (coronary artery disease): Qualifiers: Associated angina: without angina Coronary Disease-Associated Artery/Lesion type: [place] artery [place] vs. transplanted heart: [place] heart Qualified Code(s): I25.10 - Atherosclerotic heart disease of [place] coronary artery without angina pectoris Code(s): I25.10 - Atherosclerotic heart disease of [place] coronary artery without angina pectoris Status: Chronic Assessment and Plan: Stable and currently without symptoms. Continue aspirin, Plavix, losartan, and atorvastatin Subjective Date/time seen: 12/01/19 10:26 Interval history: Date of service: 12/01/2019 She is feeling well today. She noticed a new nodule for
--- NOTE | 2019-12-01 11:26 | PM.CNGS ---
Assessment and Plan Assessment and plan (1) Open wound of thigh: Code(s): S71.109A - Unspecified open wound, unspecified thigh, initial encounter Status: Acute Assessment and Plan: There is an open necrotic wound of her right posterior thigh. There is no significant induration or purulent drainage noted on my exam and this appears to be a fairly superficial wound. I discussed treatment options with the patient and would recommend proceeding with excisional debridement of the right posterior thigh wound at the bedside today. Description of the procedure, risks, benefits, indications, and expected outcomes and expected wound care following the procedure were discussed with the patient in detail. All questions were answered. She agrees to proceed. Since the wound is fairly tender, I did order for topical lidocaine to be applied prior to the procedure and will have local anesthetic at the bedside to use if needed for the procedure. I will plan to obtain a culture during the procedure if there is any significant purulent drainage beneath the necrotic tissue. Will continue local wound care after debridement and plan to re-assess the wound again tomorrow. (2) Mastitis, right, acute: Code(s): N61.0 - Mastitis without abscess Status: Acute Assessment and Plan: Right breast mastitis that seems to be improving. No abscess or purulent drainage from the small superficial wound in the center. Seems to be improving with current treatment. Continue antibiotics and monitoring. I did recommend to the patient that she see her PCP in follow-up after discharge and have a mammogram once the infection in her right breast has completely resolved/healed. (3) Cellulitis of trunk: Code(s): L03.319 - Cellulitis of trunk, unspecified Status: Acute Assessment and Plan: Left lateral trunk with small area of cellulitis and induration. No significant area of fluctuance today that would benefit from drainage. No indication for surgical intervention at this time. I discussed with the patient that this could eventually require incision and drainage if this is developing into an abscess. Would recommend to continue with the IV antibiotics and monitor this area for now to see how it progresses. (4) Diabetes mellitus with hyperglycemia: Qualifiers: Diabetes mellitus fci insulin use: without termite inspector use Diabetes mellitus type: type 2 Qualified Code(s): E11.65 - Type 2 diabetes mellitus with hyperglycemia Code(s): E11.65 - Type 2 diabetes mellitus with hyperglycemia Status: Chronic Assessment and Plan: Newly diagnosed type 2 DM on admission. Hgb A1C >14.0. Blood glucose running in the 200's today. Management per Hospitalist. Currently on sliding scale insulin and Lantus. Discussed with the patient the importance of glycemic control with wound healing and infection. (5) Antiplatelet or antithrombotic long-term use: Code(s): Z79.02 - retirement (current) use of antithrombotics/antiplatelets Status: Acute Assessment and Plan: Currently on Plavix. Increases risks of bleeding and oozing with debridement. This wound appears to be superficial and small enough to debride at the bedside today. Will attempt to get majority of necrotic tissue removed and get down to healthy tissue cautiously due to the anti-platelet effects. (6) CAD (coronary artery disease): Qualifiers: Coronary Disease-Associated Artery/Lesion type: [place] artery [place] vs. transplanted heart: [place] heart Associated angina: without angina Qualified Code(s): I25.10 - Atherosclerotic heart disease of [place] coronary artery without angina pectoris Code(s): I25.10 - Atherosclerotic heart disease of [place] coronary artery without angina pectoris Status: Chronic (7) Hypertension: Qualifiers: Hypertension type: unspecified Qualified Code(s): I10 - Essential (primary) hypertension C
[2019-12-01 11:40] LABS: Glucose Point of Care 246 (65-105)
[2019-12-01] MEDS: LIDOCAINE HCL 2% JELLY 5 ML TUBE 1 APPLIC MUCOUS MEM (12:23)
[2019-12-01 13:45] VITALS: BMI 53.8
[2019-12-01 14:00] VITALS: BP 115/62; PULSE 94; RESP 20; TEMP 36.5; O2SAT 98
--- NOTE | 2019-12-01 15:00 | PM.PROC ---
Procedure Note - Detailed Date of procedure: 12/01/19 Pre-op diagnosis: Necrotic right posterior thigh wound Post-op diagnosis: same Procedure performed: Excisional debridement of necrotic right posterior thigh wound through the skin and subcutaneous tissues, measuring 2 cm x 1 cm. Description of procedure: The patient was placed in the prone position in the bed with her left hip flexed and abducted. Prior to my arrival, I had the nurse apply 2% lidocaine jelly topical to the wound and cover with gauze for about 1 hour. This gauze dressing was then removed after positioning the patient. After a timeout was performed confirming the patient, location, and procedure/site, the right posterior thigh wound was prepped with betadine and draped in usual sterile fashion. I then used pickups and a #15 blade scalpel to sharply debride the necrotic tissue. I debrided down to the subcutaneous tissues until reaching healthy pink viable tissue. The base of the necrotic tissue had a purulent bunch appearance, but there was no pus pockets or abscess noted during debridement. When I was finished debriding this area, there was no further necrotic tissue and the wound edges and base of the wound appeared pink and healthy. Minimal slough in the base of the wound. No bleeding during the procedure. I then inspected and probed the wound. There was no tunneling or significant undermining to the wound. I then applied Silver gel to the wound bed and covered with a sterile gauze and tape. The patient tolerated the procedure well. Anesthesia: local (2% topical lidocaine) Surgeon: HASMUKH Alvarez Estimated blood loss (mL): 0 Drains: No Packing: No Pathology: none sent Complications: No immediate complications Condition: stable Disposition: no change Findings: The right posterior thigh wound was superficial and only required debridement to the subcutaneous tissues. After all necrotic tissue was removed, the wound bed appeared pink and healthy with very minimal slough that will continue to slough off with local wound care. This wound does not appear to be actively infected and no abscess found after debriding the necrotic tissue.
--- NOTE | 2019-12-01 15:39 | PCCCNOTE ---
On 12/01/19, the student, [ Kathleen Garcia], provided care and [facility] on [facility]. I have reviewed the student's documentation and agree with the findings.
[2019-12-01] MEDS: SILVERGEL (ELTA) 45 ML 1 APPLIC TOPICAL (16:17)
[2019-12-01 16:26] LABS: Glucose Point of Care 195 (65-105)
[2019-12-01 20:00] VITALS: BP 108/71; PULSE 91; RESP 20; TEMP 36.4; O2SAT 100
[2019-12-01] MEDS: MICONAZOLE NITRATE 2% VAGINAL CREAM 45 GM TUBE 1 APPFUL VAGINAL (21:53)
[2019-12-01] MEDS: ATORVASTATIN 40 MG TABLET 80 MG PO (21:53)
[2019-12-01 22:16] LABS: Glucose Point of Care 199 (65-105)
[2019-12-02] MEDS: IMIPENEM/CILASTATIN SODIUM 250 MG in DEXTROSE 5% 100 ML 300 MG IVPB ×4 (00:35→21:46)
[2019-12-02] MEDS: ALPRAZolam 0.5 MG TABLET PO (00:35)
[2019-12-02 04:00] VITALS: BP 96/44; PULSE 79; RESP 18; TEMP 36.5; O2SAT 97
[2019-12-02 07:43] LABS: Hemoglobin 13.2 g/dL (12.0-15.0); Mean Corpuscular HGB Conc 32.2 g/dl (32-36); Mean Corpuscular Hemoglobin 29.5 pg (26-34); Mean Corpuscular Volume 91.5 fl (80-100); Mean Platelet Volume 11.2 fl (7.4-10.4); Platelet Count Result 267 k/mm3 (150-375); Red Blood Count 4.48 M/mm3 (4.2-5.4); Red Cell Distribution Width 14.6 % (11.5-14.5); White Blood Count 5.9 K/mm3 (4.5-10.0)
[2019-12-02 08:00] LABS: Anion Gap 8.7 mmol/L (7-16); Blood Urea Nitrogen 4 mg/dL (7-17); Calcium 8.3 mg/dL (8.4-10.2); Carbon Dioxide 27 mmol/L (22-30); Chloride 103 mmol/L (98-107); Estimated CRCL calculation 153 ml/min; Estimated Glomerular Filt Rate > 60; Glucose 259 mg/dL (65-105); Potassium 3.7 mmol/L (3.4-5.0); Sodium 135 mmol/L (137-145)
[2019-12-02 08:20] LABS: Glucose Point of Care 287 (65-105)
[2019-12-02] MEDS: INSULIN ASPART (*BKC) 100 UNITS/ML SUB-Q ×5 (09:11→17:03)
[2019-12-02] MEDS: INSULIN GLARGINE (*BKC) 100 UNITS/ML 28 UNITS SUB-Q (09:12)
[2019-12-02] MEDS: DOCUSATE SODIUM 100 MG CAPSULE PO ×2 (09:14→20:57)
[2019-12-02] MEDS: CLOPIDOGREL BISULFATE 75 MG TABLET PO (09:14)
[2019-12-02] MEDS: ASPIRIN 81 MG ENTERIC TABLET PO (09:14)
[2019-12-02] MEDS: metFORMIN HCL 500 MG TABLET PO ×2 (09:14→17:05)
[2019-12-02] MEDS: polyethylene glycoL 3350 17 GM POWD.PACK PO (09:15)
[2019-12-02] MEDS: LOSARTAN POTASSIUM 100 MG TABLET PO (09:15)
[2019-12-02] MEDS: MULTIVITAMINS /C LUTEIN (CENTRUM SILVER) TABLET *BKC 1 TAB PO (09:15)
[2019-12-02] MEDS: SILVERGEL (ELTA) 45 ML 1 APPLIC TOPICAL (09:15)
--- NOTE | 2019-12-02 11:14 | PM.PNGS ---
Progress Note: A&P Assessment and Plan (1) Open wound of thigh: Qualifiers: Encounter type: initial encounter Laterality: right Qualified Code(s): S71.101A - Unspecified open wound, right thigh, initial encounter Code(s): S71.109A - Unspecified open wound, unspecified thigh, initial encounter Status: Acute Assessment and Plan: Right posterior thigh wound looks good today. No remaining necrotic tissue or purulent drainage today. Continue local wound care with silver gel dressing changes daily. (2) Mastitis, right, acute: Code(s): N61.0 - Mastitis without abscess Status: Acute Assessment and Plan: Continues to improve. Continue antibiotics. No surgical indication at this time. (3) Cellulitis of trunk: Code(s): L03.319 - Cellulitis of trunk, unspecified Status: Acute Assessment and Plan: Left lateral trunk abscess without improvement today. More fluctuance over the center. Discussed proceeding with I&D today at the bedside with local anesthetic with the patient. Description of the procedure, risks, benefits, indications, and expected outcomes and wound care were discussed with the patient in detail. She agrees to proceed. Will gather supplies and do this at the bedside later today. (4) Diabetes mellitus with hyperglycemia: Qualifiers: Diabetes mellitus custodial insulin use: without custodial use Diabetes mellitus type: type 2 Qualified Code(s): E11.65 - Type 2 diabetes mellitus with hyperglycemia Code(s): E11.65 - Type 2 diabetes mellitus with hyperglycemia Status: Chronic (5) Antiplatelet or antithrombotic long-term use: Code(s): Z79.02 - extermination supervisor (current) use of antithrombotics/antiplatelets Status: Acute (6) CAD (coronary artery disease): Qualifiers: Associated angina: without angina Coronary Disease-Associated Artery/Lesion type: [place] artery [place] vs. transplanted heart: [place] heart Qualified Code(s): I25.10 - Atherosclerotic heart disease of [place] coronary artery without angina pectoris Code(s): I25.10 - Atherosclerotic heart disease of [place] coronary artery without angina pectoris Status: Chronic (7) Hypertension: Qualifiers: Hypertension type: unspecified Qualified Code(s): I10 - Essential (primary) hypertension Code(s): I10 - Essential (primary) hypertension Status: Chronic (8) Hyperlipidemia: Code(s): E78.5 - Hyperlipidemia, unspecified Status: Chronic (9) Morbid obesity with BMI of 50.0-59.9, adult: Code(s): E66.01 - Morbid (severe) obesity due to excess calories; Z68.43 - Body mass index (BMI) 50.0-59.9, adult Status: Acute Additional Plan Discussed the plan of care with Dr. Yates. Subjective Subjective Date/Time Seen: 12/02/19 11:14 Patient reports: feels better Interval history: Reports that right posterior thigh wound is carbonation equipment tender but slightly better. No new complaints. No changes in the right breast or left lateral trunk wound. Blood glucose in 200's this morning. Review of Systems Review of Systems: All systems reviewed & are unremarkable except as noted in HPI and below Exam Const: General: no acute distress, alert and awake Orientation/consciousness: patient oriented x3 Skin: Other: Right breast mastitis continues to improve. No purulent drainage or induration. Left lateral trunk wound appears similar today with some fluctuance over the induration. Erythema unchanged. No opening/drainage. Right posterior thigh wound dressing removed. Wound bed and edges appear pink and healthy. Minimal yellow slough in the base of the wound that looks like it will continue to debride with local wound care. Neuro: General: moves all extremities and no focal motor deficits Extrem: General: edema bilateral (BLE non-pitting edema 1+) Psych: Affect: normal affect Attitude: cooperative Insight: Good insight present (P
[2019-12-02 11:52] LABS: Glucose Point of Care 202 (65-105)
--- NOTE | 2019-12-02 13:49 | PM.PROC ---
Procedure Note - Detailed Date of procedure: 12/02/19 Pre-op diagnosis: Left lateral trunk abscess Post-op diagnosis: same Procedure performed: Incision and drainage of simple left lateral trunk abscess Description of procedure: The site of the required I&D at the area of the abscess was identified and time out was performed. Following this, the area was prepped with chlorhexidine and draped in usual sterile fashion. Then local anesthetic was infiltrated directly over the area of swelling and abscess formation. After allowing the local anesthetic to work a direct incision was made over the fluctuant area of the abscess with an #11 blade scalpel. Very minimal purulent bloody drainage was expressed. The abscess cavity was probed and all loculation broken up. No further drainage noted. Following this, the area was packed with 1/4 inch iodoform Nu Gauze. The area was then covered with sterile 4x4s and tape. The patient tolerated the procedure well. Anesthesia: local (1% lidocaine with epinephrine (1mL)) Surgeon: HASMUKH Alvarez Estimated blood loss (mL): 0 Drains: No Packing: Yes (1/4 iodoform gauze packing) Pathology: none sent Complications: No immediate complications Condition: stable Disposition: no change Findings: Very small superficial left lateral trunk abscess.
[2019-12-02 14:00] VITALS: BP 117/64; PULSE 88; RESP 18; TEMP 36.2; O2SAT 97
--- NOTE | 2019-12-02 14:44 | P.PNIM_ITS ---
Progress Note: A&P Assessment and Plan (1) Diabetes mellitus with hyperglycemia: Qualifiers: Diabetes mellitus long term care phlebotomist insulin use: without correction use Diabetes mellitus type: type 2 Qualified Code(s): E11.65 - Type 2 diabetes mellitus with hyperglycemia Code(s): E11.65 - Type 2 diabetes mellitus with hyperglycemia Status: Chronic Assessment and Plan: New diagnosis. She reports she has a history of pre diabetes and had been on metformin in the past. A1c >14.0. Fasting blood sugar improved today. No evidence of metabolic acidosis. * continue Lantus to 28 units daily * continue scheduled NovoLog 5 units with meals * continue metformin * continue sliding scale insulin, Accu-Cheks, and hypoglycemia protocol * continue diabetic diet * she has been evaluated by dietitian and healthcare educator. Recommendations are appreciated. * she will need to continue insulin upon discharge. CC is following for insurance coverage. (2) Open wound of thigh: Qualifiers: Encounter type: initial encounter Laterality: right Qualified Code(s): S71.101A - Unspecified open wound, right thigh, initial encounter Code(s): S71.109A - Unspecified open wound, unspecified thigh, initial encounter Status: Acute Assessment and Plan: She has approximately quarter-sized erythematous, tender nodule in gluteal sulcus with centralized necrosis. There is no drainage or purulence. Ultrasound did not show definitive abscess. Suspect this is related to her uncontrolled DM. She is s/p bedside wound debridement by general surgery performed 12/01/19. Tolerated well and wound looks good. * General surgery is following and recommendations are appreciated. * Continue local wound care with silver gel. Dressing changes per general surgery * Continue IV primaxin and vancomycin (3) Mastitis, right, acute: Code(s): N61.0 - Mastitis without abscess Status: Acute Assessment and Plan: Right breast approximately dime sized nodule for which she underwent I&D by ED physician on 11/27. * Wound care is following and recommendations are appreciated * Continue local wound care * Continue IV antibiotics at this time (4) Cellulitis of trunk: Code(s): L03.319 - Cellulitis of trunk, unspecified Status: Acute Assessment and Plan: Left lateral trunk abscess in axillary region. This area is more erythematous and tender today. * Perform bedside I&D today per general surgery * Continue local wound care and abx * Continue to monitor this region closely (5) Urinary tract infection: Qualifiers: Hematuria presence: with hematuria Urinary tract infection type: acute cystitis Qualified Code(s): N30.01 - Acute cystitis with hematuria Code(s): N39.0 - Urinary tract infection, site not specified Status: Acute Assessment and Plan: Urine culture is positive for E coli. She is afebrile and without l eukocytosis. * continue Primaxin which is appropriate based on sensitivity report. Initiated on 11/27 (6) Hypertension: Qualifiers: Hypertension type: unspecified Qualified Code(s): I10 - Essential (primary) hypertension Code(s): I10 - Essential (primary) hypertension Status: Chronic Assessment and Plan: BP has been well controlled low-normal. * Continue losartan (7) Yeast infection: Code(s): B37.9 - Candidiasis, unspecified Status: Acute Assessment and Plan: Probably
--- NOTE | 2019-12-02 14:44 | PM.IMPN ---
Progress Note: A&P Assessment and Plan (1) Diabetes mellitus with hyperglycemia: Qualifiers: Diabetes mellitus keno terminal operator insulin use: without skilled nursing use Diabetes mellitus type: type 2 Qualified Code(s): E11.65 - Type 2 diabetes mellitus with hyperglycemia Code(s): E11.65 - Type 2 diabetes mellitus with hyperglycemia Status: Chronic Assessment and Plan: New diagnosis. She reports she has a history of pre diabetes and had been on metformin in the past. A1c >14.0. Fasting blood sugar improved today. No evidence of metabolic acidosis. continue Lantus to 28 units daily continue scheduled NovoLog 5 units with meals continue metformin continue sliding scale insulin, Accu-Cheks, and hypoglycemia protocol continue diabetic diet she has been evaluated by dietitian and music educator. Recommendations are appreciated. she will need to continue insulin upon discharge. CC is following for insurance coverage. (2) Open wound of thigh: Qualifiers: Encounter type: initial encounter Laterality: right Qualified Code(s): S71.101A - Unspecified open wound, right thigh, initial encounter Code(s): S71.109A - Unspecified open wound, unspecified thigh, initial encounter Status: Acute Assessment and Plan: She has approximately quarter-sized erythematous, tender nodule in gluteal sulcus with centralized necrosis. There is no drainage or purulence. Ultrasound did not show definitive abscess. Suspect this is related to her uncontrolled DM. She is s/p bedside wound debridement by general surgery performed 12/01/19. Tolerated well and wound looks good. General surgery is following and recommendations are appreciated. Continue local wound care with silver gel. Dressing changes per general surgery Continue IV primaxin and vancomycin (3) Mastitis, right, acute: Code(s): N61.0 - Mastitis without abscess Status: Acute Assessment and Plan: Right breast approximately dime sized nodule for which she underwent I&D by ED physician on 11/27. Wound care is following and recommendations are appreciated Continue local wound care Continue IV antibiotics at this time (4) Cellulitis of trunk: Code(s): L03.319 - Cellulitis of trunk, unspecified Status: Acute Assessment and Plan: Left lateral trunk abscess in axillary region. This area is more erythematous and tender today. Perform bedside I&D today per general surgery Continue local wound care and abx Continue to monitor this region closely (5) Urinary tract infection: Qualifiers: Hematuria presence: with hematuria Urinary tract infection type: acute cystitis Qualified Code(s): N30.01 - Acute cystitis with hematuria Code(s): N39.0 - Urinary tract infection, site not specified Status: Acute Assessment and Plan: Urine culture is positive for E coli. She is afebrile and without leukocytosis. continue Primaxin which is appropriate based on sensitivity report. Initiated on 11/27 (6) Hypertension: Qualifiers: Hypertension type: unspecified Qualified Code(s): I10 - Essential (primary) hypertension Code(s): I10 - Essential (primary) hypertension Status: Chronic Assessment and Plan: BP has been well controlled low-normal. Continue losartan (7) Yeast infection: Code(s): B37.9 - Candidiasis, unspecified Status: Acute Assessment and Plan: Probably secondary to uncontrolled blood sugars. She was given a dose of fluconazole on 11/27. Continue miconazole vaginal applicator (day 5 of 7) (8) CAD (coronary artery disease): Qualifiers: Associated angina: without angina Coronary Disease-Associated Artery/Lesion type: [place] artery [place] vs. transplanted heart: [place] heart Qualified Code(s): I25.10 - Atherosclerotic heart disease of [place] coronary daniel
[2019-12-02 16:32] LABS: Glucose Point of Care 177 (65-105)
--- NOTE | 2019-12-02 16:32 | PCCCNOTE ---
On 12/02/19, the student, [Kathleen Garcia ], provided care and [facility]. I have reviewed the student's documentation and agree with the findings.
[2019-12-02 20:00] VITALS: BP 110/57; PULSE 93; RESP 22; TEMP 36.1; O2SAT 96
[2019-12-02] MEDS: ATORVASTATIN 40 MG TABLET 80 MG PO (20:56)
[2019-12-02] MEDS: MICONAZOLE NITRATE 2% VAGINAL CREAM 45 GM TUBE 1 APPFUL VAGINAL (20:58)
--- NOTE | 2019-12-02 21:08 | PC.NURSE ---
Patient did not have IV access until 2044, IV vanc continued at this time, 1800 dose of Imipenem will be given after and next doses will be retimed by pharmacy
[2019-12-02 21:09] LABS: Glucose Point of Care 149 (65-105)
[2019-12-03 04:00] VITALS: BP 100/51; PULSE 88; RESP 20; TEMP 36.3; O2SAT 96
[2019-12-03 05:32] LABS: Hematocrit 40.7 % (37.0-47.0); Hemoglobin 13.1 g/dL (12.0-15.0); Mean Corpuscular HGB Conc 32.2 g/dl (32-36); Mean Corpuscular Volume 90.2 fl (80-100); Mean Platelet Volume 11.1 fl (7.4-10.4); Platelet Count Result 281 k/mm3 (150-375); Red Blood Count 4.51 M/mm3 (4.2-5.4); Red Cell Distribution Width 14.5 % (11.5-14.5); White Blood Count 6.5 K/mm3 (4.5-10.0)
[2019-12-03] MEDS: IMIPENEM/CILASTATIN SODIUM 250 MG in DEXTROSE 5% 100 ML 300 ML IVPB (05:36)
[2019-12-03 05:58] LABS: Anion Gap 8.5 mmol/L (7-16); Blood Urea Nitrogen 5 mg/dL (7-17); CRP 2.4 mg/dL (<1.0); Calcium 8.6 mg/dL (8.4-10.2); Carbon Dioxide 27 mmol/L (22-30); Chloride 104 mmol/L (98-107); Estimated CRCL calculation 187 ml/min; Estimated Glomerular Filt Rate > 60; Glucose 182 mg/dL (65-105); Potassium 3.5 mmol/L (3.4-5.0); Sodium 136 mmol/L (137-145)
[2019-12-03 08:28] LABS: Glucose Point of Care 197 (65-105)
[2019-12-03] MEDS: DOCUSATE SODIUM 100 MG CAPSULE PO (08:40)
[2019-12-03] MEDS: polyethylene glycoL 3350 17 GM POWD.PACK PO (08:40)
[2019-12-03] MEDS: metFORMIN HCL 500 MG TABLET PO (08:41)
[2019-12-03] MEDS: CLOPIDOGREL BISULFATE 75 MG TABLET PO (08:41)
[2019-12-03] MEDS: ASPIRIN 81 MG ENTERIC TABLET PO (08:41)
[2019-12-03] MEDS: MULTIVITAMINS /C LUTEIN (CENTRUM SILVER) TABLET *BKC 1 TAB PO (08:41)
[2019-12-03] MEDS: INSULIN GLARGINE (*BKC) 100 UNITS/ML 28 UNITS SUB-Q (08:41)
[2019-12-03] MEDS: LOSARTAN POTASSIUM 100 MG TABLET PO (08:41)
[2019-12-03] MEDS: INSULIN ASPART (*BKC) 100 UNITS/ML SUB-Q ×2 (08:41→12:16)
[2019-12-03] MEDS: SILVERGEL (ELTA) 45 ML 1 APPLIC TOPICAL (08:54)
--- NOTE | 2019-12-03 11:32 | PM.PNGS ---
Progress Note: A&P Assessment and Plan (1) Open wound of thigh: Qualifiers: Encounter type: initial encounter Laterality: right Qualified Code(s): S71.101A - Unspecified open wound, right thigh, initial encounter Code(s): S71.109A - Unspecified open wound, unspecified thigh, initial encounter Status: Acute Assessment and Plan: Right posterior thigh wound continues to improve. Continue local wound care with silver gel dressing changes daily. Okay to discharge from a surgical standpoint. Will have patient follow-up with PCP for wound check. (2) Mastitis, right, acute: Code(s): N61.0 - Mastitis without abscess Status: Acute Assessment and Plan: Continues to improve. Management per Hospitalist. Recommended f/u with PCP for mammogram once infection has completely healed/resolved. (3) Cellulitis of trunk: Code(s): L03.319 - Cellulitis of trunk, unspecified Status: Acute Assessment and Plan: No purulent drainage today and redness improving. Continue packing incision daily with 1/4 iodoform gauze. She will have her sister change her dressings daily at home. Okay to discharge from our standpoint. F/u with PCP for wound check as mentiond above. (4) Diabetes mellitus with hyperglycemia: Qualifiers: Diabetes mellitus custodial insulin use: without custodial use Diabetes mellitus type: type 2 Qualified Code(s): E11.65 - Type 2 diabetes mellitus with hyperglycemia Code(s): E11.65 - Type 2 diabetes mellitus with hyperglycemia Status: Chronic Assessment and Plan: Management per Hospitalist. Glycemic control is important on discharge as well for wound healing. Will be followed by her PCP. (5) Antiplatelet or antithrombotic long-term use: Code(s): Z79.02 - terminal carman (current) use of antithrombotics/antiplatelets Status: Acute (6) CAD (coronary artery disease): Qualifiers: Coronary Disease-Associated Artery/Lesion type: [place] artery [place] vs. transplanted heart: [place] heart Associated angina: without angina Qualified Code(s): I25.10 - Atherosclerotic heart disease of [place] coronary artery without angina pectoris Code(s): I25.10 - Atherosclerotic heart disease of [place] coronary artery without angina pectoris Status: Chronic (7) Hypertension: Qualifiers: Hypertension type: unspecified Qualified Code(s): I10 - Essential (primary) hypertension Code(s): I10 - Essential (primary) hypertension Status: Chronic (8) Hyperlipidemia: Code(s): E78.5 - Hyperlipidemia, unspecified Status: Chronic (9) Morbid obesity with BMI of 50.0-59.9, adult: Code(s): E66.01 - Morbid (severe) obesity due to excess calories; Z68.43 - Body mass index (BMI) 50.0-59.9, adult Status: Acute Additional Plan Discussed the plan of care with Dr. Yates. Subjective Subjective Date/Time Seen: 12/03/19 09:32 Patient reports: no new complaints Interval history: Patient feeling well today and eager to go home. No new complaints. Reports the tenderness and pain to the right posterior thigh wound has improved significantly and is only slightly tender with getting out of bed. Review of Systems Review of Systems: All systems reviewed & are unremarkable except as noted in HPI and below Constitutional: Constitutional: Reports as per HPI, Denies chills and Denies fever(s) Exam Const: General: no acute distress, alert and awake Orientation/consciousness: patient oriented x3 Skin: General skin exam: normal color Other: Right breast mastitis continues to improve. No purulent drainage or induration. Left lateral trunk abscess with no purulent drainage today, redness improved. Right posterior thigh wound dressing removed. Wound bed and edges appear pink and healthy. No necrotic tissue, no purulent drainage. No signs of infection. Neuro: General: moves all extremities and no fo
[2019-12-03 11:39] LABS: Glucose Point of Care 197 (65-105)
--- NOTE | 2019-12-03 13:15 | PM.DS ---
DS: Admitting Diagnosis Admitting Diagnosis Admitting Diagnosis: Abscess of the breast and nipple DS: Discharge Diagnosis Discharge Diagnosis (1) Diabetes mellitus with hyperglycemia: Qualifiers: Diabetes mellitus fpc insulin use: without keno terminal operator use Diabetes mellitus type: type 2 Qualified Code(s): E11.65 - Type 2 diabetes mellitus with hyperglycemia Code(s): E11.65 - Type 2 diabetes mellitus with hyperglycemia Status: Chronic Assessment and Plan: New diagnosis. She reports she has a history of pre diabetes and had been on metformin in the past. A1c >14.0. No evidence of metabolic acidosis. She was started on Lantus 28 units daily and 5 units of NovoLog with meals. Also started on metformin. She was seen in consultation by the telehealth nurse educator for teaching on how to use insulin and how to monitor blood sugars. Diabetic diet was discussed. Her blood sugars improved. She is to monitor her blood sugars regularly at home and record for review by PCP. (2) Open wound of thigh: Qualifiers: Encounter type: initial encounter Laterality: right Qualified Code(s): S71.101A - Unspecified open wound, right thigh, initial encounter Code(s): S71.109A - Unspecified open wound, unspecified thigh, initial encounter Status: Acute Assessment and Plan: She has approximately quarter-sized erythematous, tender nodule in gluteal sulcus with centralized necrosis without drainage or purulence. Ultrasound did not show definitive abscess. Suspect this is related to her uncontrolled DM. She was started on IV Primaxin and vancomycin. She had bedside wound debridement by general surgery performed 12/01/19. she tolerated the bedside procedure well and her wound Begin like he much better. She will continue to apply silver gel to the wound and she was educated on dressing changes. She will continue Keflex for 3 days to complete a 7 day course of antibiotics. (3) Mastitis, right, acute: Code(s): N61.0 - Mastitis without abscess Status: Acute Assessment and Plan: Right breast approximately dime sized nodule for which she underwent I&D by ED physician on 11/27. Evaluated by Wound Care and general surgery. Continue local wound care and antibiotics as above. Recommend follow-up with PCP for mammogram screening (4) Cellulitis of trunk: Code(s): L03.319 - Cellulitis of trunk, unspecified Status: Acute Assessment and Plan: Left lateral trunk abscess in axillary region. She had a bedside I&D today by general surgery, local wound care and antibiotics as above. She was encouraged to monitor these areas for skin and check other parts of her skin for any additional signs of infection. (5) Urinary tract infection: Qualifiers: Hematuria presence: with hematuria Urinary tract infection type: acute cystitis Qualified Code(s): N30.01 - Acute cystitis with hematuria Code(s): N39.0 - Urinary tract infection, site not specified Status: Acute Assessment and Plan: Urine culture was positive for E coli. She remained afebrile and without leukocytosis. she was treated with IV Primaxin which was appropriate based on urine culture sensitivities. (6) Hypertension: Qualifiers: Hypertension type: unspecified Qualified Code(s): I10 - Essential (primary) hypertension Code(s): I10 - Essential (primary) hypertension Status: Chronic Assessment and Plan: BP was monitored regularly and was well controlled on home losartan. (7) Yeast infection: Code(s): B37.9 - Candidiasis, unspecified Status: Acute Assessment and Plan: More than likely secondary to uncontrolled blood sugars. She was given a dose of fluconazole on 11/27. She was treated with miconazole vaginal applicators for 5 days and will continue home to complete 7 days. (8) CAD (coronary artery disease):
== END 2019-12-03 14:27 | disposition home or self-care (01) | DRG 420 ==
LOC: ANHED 15:07 → ANH2MED 16:24
PROVIDERS: Internal Medicine; Nurse Practitioner; Physician Assistant; Admitting Provider Internal Medicine; Emergency Provider Emergency Medicine; PCP Family Medicine; Visit Provider Family Medicine
DX: E11.65 Type 2 diabetes mellitus with hyperglycemia (principal); N61.0 Mastitis without abscess; S71.101A Unspecified open wound, right thigh, initial encounter; X58.XXXA Exposure to other specified factors, initial encounter; L02.412 Cutaneous abscess of left axilla; B37.9 Candidiasis, unspecified; E66.01 Morbid (severe) obesity due to excess calories; I10 Essential (primary) hypertension; N39.0 Urinary tract infection, site not specified; B96.20 Unspecified Escherichia coli [E. coli] as the cause of diseases classified elsewhere; I69.398 Other sequelae of cerebral infarction; Z68.43 Body mass index [BMI] 50.0-59.9, adult; R26.89 Other abnormalities of gait and mobility; E78.5 Hyperlipidemia, unspecified; N63.0 Unspecified lump in unspecified breast; I25.2 Old myocardial infarction; I25.10 Atherosclerotic heart disease of native coronary artery without angina pectoris; Z95.5 Presence of coronary angioplasty implant and graft; Z87.891 Personal history of nicotine dependence
CPT/HCPCS: 36415; 76642; 76705; 80048; 80053; 80202; 81001; 82010; 82565; 83036; 83605; 83735; 84443; 85025; 85027; 86140; 87077; 87086; 87088; 87186; 93005; 96361; 96365; 96366; 96367; 96375; 99285; A9270; G0378; G0379; J0743; J1815; J3370; J7030; J7120

== ENCOUNTER 2020-02-19 15:31 | Outpatient (CLI) | payer OTHER, SELFPAY ==
--- NOTE | ~2020-02-19 | MM_ITS ---
EXAMINATION: MM screening kiersten BI w tasia HISTORY: Screening mammogram TECHNIQUE: Craniocaudal and mediolateral oblique 3-D tomosynthesis images were obtained and synthetic 2-D images were generated. CAD analysis was submitted and interpreted. COMPARISON: 11/29/2019 limited right breast ultrasound examination BREAST PARENCHYMAL COMPOSITION: There are scattered areas of fibroglandular density. FINDINGS: There is no evidence of suspicious mass, calcification, or architectural distortion to sugg est malignancy in either breast. There has been no suspicious interval change. IMPRESSION: 1. No mammographic evidence of malignancy. 2. Recommend routine screening mammography in one year. BI-RADS Category 1: Negative Reviewed, dictated and finalized at location A.
== END 2020-02-19 15:32 | disposition home or self-care (01) ==
PROVIDERS: PCP Family Medicine; Visit Provider Family Medicine
DX: Z12.31 Encounter for screening mammogram for malignant neoplasm of breast (principal)
CPT/HCPCS: 77063; 77067

== ENCOUNTER 2020-05-04 14:50 | Outpatient (CLI) | payer OTHER, SELFPAY ==
--- NOTE | ~2020-05-04 | XR_ITS ---
XR shoulder LT min 2V DATE: 05/04/2020 15:23 INDICATION: Generalized left knee pain and burning for 3 days. History of gout. TECHNIQUE: AP and lateral views COMPARISON: None FINDINGS: There is chondrocalcinosis of the medial and lateral compartments. Joint spaces are relativ [place] preserved. No fracture or dislocation or joint effusion. No periosteal reaction or bone destruction or radiopaqu e intra-articular loose body is evident. Femoral artery calcification. IMPRESSION: Chondrocalcinosis of the knee joint Reviewed, dictated and finalized at location B. DENTAL ASSISTANT
== END 2020-05-04 14:51 | disposition home or self-care (01) ==
LOC: ANHIMG 14:57
PROVIDERS: PCP Family Medicine; Visit Provider Family Medicine
DX: M25.512 Pain in left shoulder (principal); M11.262 Other chondrocalcinosis, left knee
CPT/HCPCS: 73030

== ENCOUNTER 2020-06-03 12:30 | Outpatient (RCR) | payer OTHER, SELFPAY ==
--- NOTE | 2020-05-25 14:55 | PTOPEVAL ---
PHYSICAL THERAPY EVALUATION AND PLAN OF CARE 05-25-20 Thank you for referring Lacey Elias to [facility].? She is scheduled to be seen for therapy? 2 x/week for 3 weeks. Please review, sign, date and return this plan of care MARCEL. I agree with and certify that the following plan of care is medically necessary. Referring Physician Date Attending Provider: Vaishnavi Brunson MD *PT Outpatient Evaluation Document 05/25/20 14:00 KRYSTLE (Rec: 05/25/20 14:55 KRYSTLE [id number]) Outpatient Past Medical History Past Medical History Source of Past Medical History Recalled from Previous Visit, Confirmed with Patient/Family Neurological History Hx Cerebrovascular Accident (CVA) Yes Cardiovascular History Hx Cardiac Catheterization Yes Hx Coronary Stent Yes Hx Deep Vein Thrombosis Yes: Right leg clot removed Hx Hypercholesterolemia Yes: meds Hx Hypertension Yes: meds Hx Myocardial Infarction Yes: 2004 Respiratory History Hx Respiratory Disorders No Significant History Gastrointestinal History Hx Gastrointestinal Disorders No Significant History Genitourinary History Hx Genitourinary Disorders No Significant History Musculoskeletal History Hx Musculoskeletal Disorders No Significant History Hematological History Hx Hematological Disorders No Significant History Endocrine History Hx Diabetes Yes: meds HEENT History Hx HEENT Disorders No Significant History Integumentary History Hx Other Skin Disorders Yes: yeast infection of skin Reproductive History Hx Reproductive Disorders No Significant History Psychosocial History Hx Anxiety Yes Pain History History of Any Previous or Ongoing No Significant History Instance of Pain Anesthesia History Hx Anesthesia Reactions No Significant History Other History Hx Other Medical Conditions Yes: have lost 50# due to diet for diabetes control Evaluation Information Problem Diagnosis L shoulder pain Onset 03-31-20 Subjective Information fell forward, slipped on dog Query Text:As Reported By Patient/ pee and landed onto L arm; saw Family orthopedic dr- got injection in shoulder and it helped some ; Diagnostic Tests X-Rays For This Problem Yes MRI For This Problem No Other Tests For This Problem No Previous Treatments Previous Treatments For This Problem NO PT for shoulder Prior Level of Function Activity Level (Last 3 Months) Occupation not working outside home Hand Dominance Right Activity of Daily Living Ability Independent Indoor/Home Mobility Independent
--- NOTE | 2020-06-07 15:46 | PCPTNOTE ---
pt did not show for today's appt, called and left voice mail reminder of next appointment.
--- NOTE | 2020-06-10 12:48 | PCPTNOTE ---
Patient did not show up for scheduled appointment this date. Called and spoke to patient and she if today was , I replied yes, then she stated that she wouldn't of been able to make because it is snowing. Reminded her of her net appointment, and asked her to call if she is unable to make it.
--- NOTE | 2020-06-14 11:59 | PCPTNOTE ---
pt canceled due to bad weather;
--- NOTE | 2020-06-30 09:32 | PCPTNOTE ---
PHYSICAL THERAPY DISCHARGE 06-30-20 Attending Provider: Vaishnavi Brunson MD Patient:Lacey Elias Date of :1970 Ms. Elias has not returned for any further treatments since 06/03/2020, therefore she will be discharged at this time. She has received 3 PT sessions, for the diagnosis of L shoulder pain. She did not show for 2 and called/canceled 1 appointment. Thank you for referring Lacey to [facility]. Please review, sign, date and return this discharge summary MARCEL. I have been updated about the patient's current status and I agree with discharge from the above service at this time. Referring Physician Date
== END 2020-06-30 14:22 | disposition home or self-care (01) ==
LOC: ANHPT 12:30
PROVIDERS: PCP Family Medicine; Visit Provider Family Medicine
DX: M25.512 Pain in left shoulder (principal)
CPT/HCPCS: 97110; 97161

== ENCOUNTER 2020-09-15 12:30 | Outpatient (RCR) | payer OTHER, SELFPAY ==
--- NOTE | 2020-08-17 15:07 | PTOPEVAL ---
PHYSICAL THERAPY EVALUATION Thank you for referring Lacey Elias to [facility].? Alicia was evaluated for the dx of left shoulder pain. The patient is scheduled to be seen for therapy? 2 x/week for 4 weeks. Please review, sign, date and return this plan of care MARCEL. I agree with and certify that the following plan of care is medically necessary. Referring Physician Date Referring Provider: Dr. Deandre King MD *PT Outpatient Evaluation Start: 08/17/20 14:01 Freq: Status: Active Protocol: Document 08/17/20 14:01 MLV (Rec: 08/17/20 14:46 MLV [id number]) Therapy Assessment Status Assessment Status Assessment Status Evaluation Evaluation Information Problem Diagnosis left RTC pain/possible tear Cause fell Additional Evaluation Detail Pt reports having shoulder trouble when she fell on 03/31/20. The patient had therapy but did not get better, the pt saw MD and PT re-ordered. The patient believes she has a RTC tear. The patient has to modify position to sleep and still does not sleep well due to pain. The patient is not using the left arm for normal ADL's or reaching due to pain with use. Prior to fall, the patient had no pain or limits to her left arm. The patient is right handed, lives home with her sister and is on disability since a CVA (2018). Pt lives sendentary life, on computer most of time; doesn't do cooking/housework or yardwork. When patient goes out, pt uses a motor scooter or holds a cart for balance/ safety. Diagnostic Tests X-Rays For This Problem Yes: possible tear Previous Treatments Previous Treatments For This Problem PT; didn't help but did very little due to in family at the time Pain Assessment Timing of Pain Assessment Timing of Pain Assessment Assessment Pain Scale Pain Scale Used Numeric (1 - 10) Self Report Pain Assessment Left Shoulder(s) Reported Pain Level 0 Pain Description Sharp Radicular Pain Location pain goes into upper arm area Pain Frequency Intermittent
--- NOTE | 2020-09-10 10:48 | PCPTNOTE ---
Patient called & cancelled scheduled appointment this date due to being unable to make it in .
--- NOTE | 2020-09-15 13:10 | PTOPEVAL ---
PHYSICAL THERAPY DISCHARGE SUMMARY Thank you for referring Lacey Elias to [facility].? The patient has been seen 8 visits for the dx of left shoulder pain/possible RTC tear. Pt has met goals partially and has peaked with skilled PT needs. DC PT. Please review, sign, date and return this plan of care. I agree with and certify the following plan of care. Referring Physician Date Referring Provider: Dr. Deandre King MD *PT Outpatient Evaluation Start: 08/17/20 14:01 Freq: Status: Active Protocol: Document 09/15/20 12:38 MLV (Rec: 09/15/20 13:10 MLV [id number]) Therapy Assessment Status Assessment Status Discharge Evaluation Information Problem Diagnosis left RTC pain/possible tear Onset 03/31/20 Cause fell Additional Evaluation Detail The patient reports the shoulder feels about the same since therapy evaluation. The patient reports pain with reaching and initial lying position. The patient reports difficulty with supine to sit due to pain when pushing with her arm. The patient reports no trouble with the HeP but not giving any relief. Pain Assessment Timing of Pain Assessment Timing of Pain Assessment Assessment Pain Scale Pain Scale Used Numeric (1 - 10) Self Report Pain Assessment Left Shoulder(s) Reported Pain Level 0 Pain Frequency Intermittent Other Pain Description pain with reaching is 6-8 out of 10 Pain Aggravating Factors Exercise/Activity Pain Behaviors Guarding Pain Score Pain Score 0: Self Report Interventions Used Interventions Used By Clinicians Electrical Stimulation, Exercise,Heat,Manual Therapy Techniques Pain Relief Interventions Used By Exercise,Heat,Inactivity/Rest Patient Upper Extremity Range of Motion General Upper Extremity Range of Motion Gross Upper Extremity Range of Motion right shoulder active flexion Comments 160, abduction 165, ER 90, IR 80 degrees left shoulder active flexion 115, abduction 71, ER 38, IR 75 degrees; pain with flexion, abduction and ER motions; passive shoulder flexion 155 degrees, passive ER 50 degrees Upper Extremity Muscle Strength Test
== END 2020-09-16 11:54 | disposition home or self-care (01) ==
LOC: ANHPT 12:30
PROVIDERS: PCP Family Medicine
DX: M25.512 Pain in left shoulder (principal)
CPT/HCPCS: 97014; 97110; 97140; 97162; G0283

== ENCOUNTER 2021-11-08 09:37 | Outpatient (CLI) | payer OTHER, SELFPAY ==
--- NOTE | ~2021-11-08 | NM_ITS ---
EXAMINATION: NM joseph stress w perfusion DATE: 11/08/2021 13:37 INDICATION: Coronary atherosclerosis. TECHNIQUE: Rest images were obtained following intravenous administration of 8.5 mCi Tc99m tetrofosmi n (Myoview). The patient was infused intravenously with Lexiscan (regadenoson). Then, 25.9 mCi Tc99m tetrofosmin (Myoview) was administered intravenously, and stress images were obtained. Data was recon structed into short axis and horizontal and vertical long axis SPECT images. Gated SPECT images were also obtained. COMPARISON: None. FINDINGS: There is a large, severe, fixed perfusion defect involving left ventricular apex, the apica l segments, mid anteroseptal, mid anterior, and mid anterolateral segments, and basal anterior segmen t, consistent with infarct. No significant reversible component to suggest ischemia. There is no segm ental wall motion abnormality. Left ventricular ejection fraction measures 63%. IMPRESSION: 1. Large area of severe infarct centered in the left ventricular apex and anterior wall. 2. Normal left ventricular ejection fraction measuring 63%. Reviewed, dictated and finalized at location A. IMPRESSION: 1. Large area of severe infarct centered in the left ventricular apex and anter ior wall. 2. Normal left ventricular ejection fraction measuring 63%.
--- NOTE | 2021-11-08 09:41 | ECHO_ITS ---
Patient Info Name: Alicia Elias Age: 51 years : 1970 Gender: Female Ht: 63 in Wt: 300 lbs BSA: 2.55 m2 HR: 82 bpm BP: 133 / 74 mmHg Technical Quality: Poor Exam Date: 11/08/2021 10:17 AM Exam Location: [facility] Patient Status: Outpatient Admit Date: 11/08/2021 Staff Ordering Physician: Ever Ferrera DO Painter Hand: Brian Patterson RDCS, RT Attending Provider: Ever Ferrera DO Referring Physician: Iban FLORES; Exam Type: CA echo dop color flow w con Study Info Indications I35.0 - Nonrheumatic aortic (valve) stenosis Complete two-dimensional, color flow and Doppler transthoracic echocardiogram is performed. Strain analysis performed. Summary 1. Complete two-dimensional, color flow and Doppler transthoracic echocardiogram is performed. 2. Technically suboptimal study due to poor sonographic images. 3. Definity contrast administered improved wall motion interpretation. 4. Left ventricular chamber dimension is normal. 5. Entire apex is akinetic. Inferoapex is aneurysmal. No thrombus in apex. 6. Left ventricular systolic function is normal, estimated at 55-60%. 7. Left ventricular septal wall motion is abnormal with septal motion related to bundle branch block. 8. The left ventricular diastolic function is grade I diastolic dysfunction. 9. E/e' 8 is minimally elevated. 10. There is mild aortic valve stenosis based on a peak velocity of 189.77 cm/s, mean gradient of 8 mmHg, and aortic valve area of 1.76 cm2. 11. Moderate pulmonary hypertension, estimated pulmonary arterial systolic pressure is 54 mmHg. Left Ventricle Technically suboptimal study due to poor sonographic images. E/e' 8 is minimally elevated. Entire apex is akinetic. Inferoapex is aneurysmal. No thrombus in apex. Definity contrast administered improved wall motion interpretation. Left ventricular chamber dimension is normal. Left ventricular systolic function is normal, estimated at 55-60%. Left ventricular septal wall motion is abnormal with septal motion related to bundle branch block. The left ventricular diastolic function is grade I diastolic dysfunction. Right Ventricle Right ventricular systolic function is normal and with normal TAPSE 2.3 cm. Right ventricular chamber dimension is normal. Left Atria Left atrial chamber dimension is normal. Right Atria Right atrial chamber dimension is normal. Aortic Valve The aortic valve is not well visualized. Cannot determine number of aortic valve leaflets. There is mild aortic valve stenosis based on a peak velocity of 189.77 cm/s, mean gradient of 8 mmHg, and aortic valve area of 1.76 cm2. There is no aortic valve regurgitation. Pulmonic Valve There is no pulmonic regurgitation. Mitral Valve There is no mitral valve stenosis. There is no mitral valve regurgitation. Tricuspid Valve There is no tricuspid valve regurgitation. Moderate pulmonary hypertension, estimated pulmonary arterial systolic pressure is 54 mmHg. Pericardium/Pleural There is no pericardial effusion. Inferior Vena Cava Normal inferior vena cava with >50% collapse upon inspiration consistent with normal right atrial pressure, 5 mmHg. Aorta The aortic root size at the sinus of Valsalva is normal. Left Ventricular Outflow Tract Name Value Normal LVOT 2D
--- NOTE | 2021-11-08 09:42 | EST_ITS ---
Patient Info Name: Alicia Elias Age: 51 years : 1970 Gender: Female Ht: 63 in Wt: 300 lbs BSA: 2.55 m2 HR: 84 bpm BP: 145 / 99 mmHg Heart Rhythm: Sinus Rhythm Exam Date: 11/08/2021 12:12 PM Exam Location: [facility] Stress Patient Status: Outpatient Admit Date: 11/08/2021 Staff Ordering Physician: Ever Ferrera DO Attending Provider: Ever Ferrera DO Exercise Technologist: Pati Lomas CT Exercise Physician: Ever Ferrera DO Exam Type: CA stress joseph w NM Study Info Indications R06.00 - Dyspnea, unspecified I25.10 - Atherosclerotic heart disease of [place] coronary artery without angina pectoris A regadenoson stress test was performed. Summary 1. 1. Negative lexiscan stress test for ischemic ST changes by ECG criteria. 2. 2. Baseline hypertension. 3. 3. Nuclear scan to follow and will be reported separately. Please correlate with it. 4. 4. Patient informed of the above results. Protocol: Lexiscan Stress ECG Details Stage: REST Duration (min): 2 min : 41 sec HR (bpm): 88 SBP (mmHg): 145 DBP (mmHg): 99 Stage: REST Duration (min): 3 min : 19 sec HR (bpm): 82 SBP (mmHg): 145 DBP (mmHg): 99 Stage: REST Duration (min): 8 min : 8 sec HR (bpm): 84 SBP (mmHg): 145 DBP (mmHg): 99 Stage: STAGE 1 Duration (min): 1 min : 0 sec HR (bpm): 114 SBP (mmHg): 145 DBP (mmHg): 99 Stage: RECOVERY Duration (min): 1 min : 0 sec HR (bpm): 107 SBP (mmHg): 122 DBP (mmHg): 62 Stage: RECOVERY Duration (min): 2 min : 0 sec HR (bpm): 103 SBP (mmHg): 122 DBP (mmHg): 62 Stage: RECOVERY Duration (min): 2 min : 56 sec HR (bpm): 105 SBP (mmHg): 147 DBP (mmHg): 65 Rest HR: 84 bpm Peak HR: 114 bpm Rest Sys BP: 145 mmHg Peak Sys BP: 147 mmHg Max Pred HR: 168 bpm % Max Pred HR: 68 % Target HR: 143 bpm Max RPP: 16,758 bpm*mmHg Termination Reason: Completed protocol Cardiac Symptoms: None Total Time: 1 min : 0 sec Rest Yan BP: 99 mmHg Peak Yan BP: 65 mmHg Total Dose: 0.4 mg Resting ECG Sinus rhythm, anterior infarct and inferior infarct, age indeterminate, low voltage in diffuse leads. Stress ECG No ST changes. Arrhythmias None. Report Signatures
== END 2021-11-08 09:38 | disposition home or self-care (01) ==
PROVIDERS: PCP Physician Assistant; Visit Provider Internal Medicine Cardiovascular Disease
DX: R06.00 Dyspnea, unspecified (principal); I25.10 Atherosclerotic heart disease of native coronary artery without angina pectoris; I21.9 Acute myocardial infarction, unspecified; I27.20 Pulmonary hypertension, unspecified; I35.0 Nonrheumatic aortic (valve) stenosis; R93.1 Abnormal findings on diagnostic imaging of heart and coronary circulation
CPT/HCPCS: 78452; 93017; A9502; C8929; J2785

== ENCOUNTER 2021-11-17 01:32 | Day surgery (SDC) | payer OTHER, SELFPAY ==
[2021-09-30 08:21] VITALS: BMI 53.1
--- NOTE | 2021-09-30 15:05 | PC.NURSE ---
Permission to stop plavix denied by Dr Arely Bender office. Referred to cardiology. Patient has appt with new fitness director SundayOctober 04 as she has not seen a fitness director in several years. She understands that procedure is cancelled for endoscopy 10/06/2021. She will call to reschedule after her cardiology appt.
[2021-11-11 12:59] VITALS: BMI 53.1
--- NOTE | 2021-11-16 13:43 | PM.HPGS ---
History of Present Illness History of Present Illness Consent: Risks, benefits, and alternatives have been discussed and questions answered. Patient agrees to proceed with procedure. Chief complaint: positive cologuard Narrative: Alicia Elias is a 51 year old female Referred for colon cancer screening Review of Systems Review of Systems: All systems reviewed & are unremarkable except as noted in HPI and below PMFSH Past Medical History Medical History CAD (coronary artery disease) Diabetes mellitus Diabetes mellitus with hyperglycemia History of CVA in adulthood 2018. Affected her balance History of myocardial infarction at age 34 History of stroke (~2018) Hyperlipidemia Hypertension Morbid obesity with BMI of 50.0-59.9, adult LINDA (obstructive sleep apnea) Surgical History Surgical History History of coronary angioplasty with insertion of stent Has reportedly had 6 cardiac catheterizations with her initial cardiac cath at the age of 34 with PCI (1 stent placed). Family History Family History Mother Family history of heart disease in male family member before age 55 Father Heart disease Other Cerebrovascular accident Diabetes mellitus Family history of malignant neoplasm Hypertension Social History Social History Social History: The patient stated that her sister, Aiyana, would be the medical decision maker for her. The patient lives with her father who helps care for her and drive her. She has never been and does not have any children. She is on disability now since her stroke. 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 Patient stated that she quit smoking 2 years ago. She does not use any illicit drugs, marijuana or alcohol. Smoking packs per day: 2 Smoking cigarettes per day: 40.0 Years smoked: 35 Smoking pack-years: 70.00 Smoking status: Former smoker Tobacco type: cigarettes Smoking end date: 11/08/17 Alcohol intake: never Substance use: never Substance use type: does not use Living arrangements: with family Gender identity (if verbalized by the patient): Female Spiritual care concerns: No Meds Home Medications and Allergies Home Medications Medication Instructions Recorded Confirmed Type aspirin 81 mg tablet,delayed 81 mg PO DAILY 11/28/19 11/11/21 History release clopidogrel 75 mg tablet 75 mg PO DAILY 11/28/19 11/11/21 History ergocalciferol (vitamin D2) 1,250 50,000 unit PO WEEKLY 11/28/19 11/11/21 History mcg (50,000 unit) capsule (Vitamin D2) multivit with minerals-iron 18 1 tablet PO DAILY 11/28/19 11/11/21 History mg-folic ac 400 mcg-vit K 25 mcg tablet (Adults Multivitamin) blood sugar diagnostic (OneTouch #100 ea 12/03/19 11/11/21 Rx Verio test strips) blood-glucose meter (OneTouch #1 ea 12/03/19 11/11/21 Rx Verio Flex Meter) lancets 33 gauge (BD Ultra Fine #100 ea 12/03/19 11/11/21 Rx Lancets) metformin 500 mg tablet 500 mg PO BIDWM #30 tabs 12/03/19 11/11/21 Rx (Glucophage) rosuvastatin 40 mg tablet 40 mg PO DAILY 12/16/20 11/11/21 History hydrochlorothiazide 12.5 mg tablet 12.5 mg PO DAILY 09/30/21 11/11/21 History hydroxyzine HCl 50 mg tablet 50 mg PO DAILY PRN Anxiety 09/30/21 11/11/21 History Allergies Allergy/AdvReac Type Severity Reaction Status Date / Time No Known Allergies Allergy Mild Verified 11/17/21 07:42 Exam Const: General: alert Nutritional Appearance: obese Orientation/consciousness: patient oriented x3 Resp: Auscultation: clear to auscultation bilaterally Cardio: Rhythm: regular rhythm GI: Inspection: obesity GI Palp: Yes Soft to palpation and No Tenderness to palpation present (GI) Neuro: General: patient oriented x3 Assessment and Plan Assess
[2021-11-17 07:43] VITALS: BP 147/95; PULSE 93; RESP 18; TEMP 36.4; O2SAT 98; BMI 53.7
[2021-11-17] MEDS: LACTATED RINGERS 1,000 ML 150 ML IV CONT (08:00)
[2021-11-17 08:06] LABS: Glucose Point of Care 146 mg/dl (65-105)
--- NOTE | 2021-11-17 08:15 | WPDANESEPPF ---
Anes - Initial Pre Proc Eval Procedure: Operation Date: 11/17/21 09:00 Proposed Procedures p Colonoscopy - Jerad Baum MD Date/Time: 11/17/21 08:15 Surgeon: Jerad Baum MD Pre Op Diagnosis: positive cologuard Patient Data Age: 51 Gender: F Height: 1.6 m Weight: 137.7 kg Last Vital Signs Temp 36.4 C 11/17/21 07:43 Pulse 93 11/17/21 07:43 Resp 18 11/17/21 07:43 BP 147/95 H 11/17/21 07:43 Pulse Ox 98 11/17/21 07:43 O2 Del Method Room Air 11/17/21 07:43 Allergies Allergy/AdvReac Type Severity Reaction Status Date / Time No Known Allergies Allergy Mild Verified 11/17/21 07:42 Home Medications Medication Instructions Recorded Confirmed Type aspirin 81 mg tablet,delayed 81 mg PO DAILY 11/28/19 11/11/21 History release clopidogrel 75 mg tablet 75 mg PO DAILY 11/28/19 11/11/21 History ergocalciferol (vitamin D2) 1,250 50,000 unit PO WEEKLY 11/28/19 11/11/21 History mcg (50,000 unit) capsule (Vitamin D2) multivit with minerals-iron 18 1 tablet PO DAILY 11/28/19 11/11/21 History mg-folic ac 400 mcg-vit K 25 mcg tablet (Adults Multivitamin) blood sugar diagnostic (OneTouch #100 ea 12/03/19 11/11/21 Rx Verio test strips) blood-glucose meter (OneTouch #1 ea 12/03/19 11/11/21 Rx Verio Flex Meter) lancets 33 gauge (BD Ultra Fine #100 ea 12/03/19 11/11/21 Rx Lancets) metformin 500 mg tablet 500 mg PO BIDWM #30 tabs 12/03/19 11/11/21 Rx (Glucophage) rosuvastatin 40 mg tablet 40 mg PO DAILY 12/16/20 11/11/21 History hydrochlorothiazide 12.5 mg tablet 12.5 mg PO DAILY 09/30/21 11/11/21 History hydroxyzine HCl 50 mg tablet 50 mg PO DAILY PRN Anxiety 09/30/21 11/11/21 History Laboratory Tests 11/17/21 07:59 POC Capillary Glucose 146 mg/dl H mg/dl (65-105) Patient hx anesthesia problems: none Family hx anesthesia problems: none Results Review: All pre-operative results and documents have been reviewed as part of the pre-operative evaluation. [facility] Past Medical History Medical History (Updated 11/17/21 @ 08:18 by Fabricio Mitchell MD) CAD (coronary artery disease) Diabetes mellitus Diabetes mellitus with hyperglycemia History of CVA in adulthood 2018. Affected her balance History of myocardial infarction at age 34 History of stroke (~2018) Hyperlipidemia Hypertension Morbid obesity with BMI of 50.0-59.9, adult LINDA (obstructive sleep apnea) Surgical History Surgical History History of coronary angioplasty with insertion of stent Has reportedly had 6 cardiac catheterizations with her initial cardiac cath at the age of 34 with PCI (1 stent placed). Family History Family History Mother Family history of heart disease in male family member before age 55 Father Heart disease Other Cerebrovascular accident Diabetes mellitus Family history of malignant neoplasm Hypertension Social History Social History Social History: The patient stated that her sister, Aiyana, would be the medical decision maker for her. The patient lives with her father who helps care for her and drive her. She has never been and does not have any children. She is on disability now since her stroke. 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 Patient stated that she quit smoking 2 years ago. She does not use any illicit drugs, marijuana or alcohol. Smoking packs per day: 2 Smoking cigarettes per day: 40.0 Years smoked: 35 Smoking pack-years: 70.00 Smoking status: Former smoker Tobacco type: cigarettes Smoking end date: 11/08/17 Alcohol intake: never Substance use: never Substance use type: does not use Living arrangements: with family Gender identity (if verbalized by the patient): Female Spiritual care concerns: No Xis - Alber Lewis
[2021-11-17 09:12] VITALS: BP 135/72; PULSE 87; RESP 20; O2SAT 100
[2021-11-17 09:22] VITALS: BP 129/69; PULSE 82; RESP 18; O2SAT 99
[2021-11-17 09:32] VITALS: BP 142/91; PULSE 79; RESP 18; O2SAT 100
== END 2021-11-17 09:39 | disposition home or self-care (01) ==
PROVIDERS: PCP Physician Assistant; Visit Provider Internal Medicine Gastroenterology
PROC: 0DJD8ZZ Inspection of Lower Intestinal Tract, Via Natural or Artificial Opening Endoscopic (ICD-10-PCS; CPT 45378; principal; 2021-11-17 09:00)
DX: Z12.11 Encounter for screening for malignant neoplasm of colon (principal); K57.30 Diverticulosis of large intestine without perforation or abscess without bleeding; D12.8 Benign neoplasm of rectum; R19.5 Other fecal abnormalities; I25.10 Atherosclerotic heart disease of native coronary artery without angina pectoris; E11.9 Type 2 diabetes mellitus without complications; I25.2 Old myocardial infarction; I10 Essential (primary) hypertension; E78.5 Hyperlipidemia, unspecified; G47.33 Obstructive sleep apnea (adult) (pediatric); Z86.73 Personal history of transient ischemic attack (TIA), and cerebral infarction without residual deficits; E66.01 Morbid (severe) obesity due to excess calories; Z68.43 Body mass index [BMI] 50.0-59.9, adult; Z95.5 Presence of coronary angioplasty implant and graft; Z87.891 Personal history of nicotine dependence; Z79.02 Long term (current) use of antithrombotics/antiplatelets; Z79.82 Long term (current) use of aspirin; Z79.84 Long term (current) use of oral hypoglycemic drugs
CPT/HCPCS: 45381; 45385; 82948; 88305; J2704; J7120

== ENCOUNTER 2022-12-25 16:40 | Outpatient (CLI) | payer OTHER, SELFPAY ==
--- NOTE | ~2022-12-25 | XR_ITS ---
EXAMINATION: XR lumbar spine 2-3V DATE: 12/25/2022 17:03 INDICATION: Left-sided low back pain. TECHNIQUE: 3 views of lumbar spine were obtained. COMPARISON: None. FINDINGS: Bone alignment is normal. Vertebral body heights are normal. There is mildly decreased disc height at L3-L4 and L4-L5. There is multilevel mild facet joint osteoarthritis. There is a fusiform aneurysm of abdominal aorta measuring approximately 3.6 cm. IMPRESSION: 1. Mild lumbar spondylosis. 2. Fusiform aneurysm of abdominal aorta measuring approximately 3.6 cm. Reviewed, dictated and finalized at location E.
== END 2022-12-25 16:41 | disposition home or self-care (01) ==
PROVIDERS: PCP Physician Assistant; Visit Provider Physician Assistant
DX: M47.896 Other spondylosis, lumbar region (principal); I71.40 Abdominal aortic aneurysm, without rupture, unspecified
CPT/HCPCS: 72100

== ENCOUNTER 2023-01-18 09:32 | Outpatient (CLI) | payer OTHER, SELFPAY ==
--- NOTE | ~2023-01-18 | US_ITS ---
EXAMINATION: US aorta DATE: 01/18/2023 10:41 INDICATION: Abdominal aortic aneurysm TECHNIQUE: Grayscale, color Doppler, and pulsed Doppler images of the aorta and common iliac arteries were obtained. COMPARISON: None. FINDINGS: The proximal aorta measures 2.4 cm AP diameter. The mid aorta measures 1.8 cm. The distal aorta measu res 2.9 cm. The right common iliac artery measures 0.8 cm. The left common iliac artery measures 1.0 cm. IMPRESSION: 1. Normal caliber abdominal aorta. Reviewed, dictated and finalized at location A.
== END 2023-01-18 09:33 | disposition home or self-care (01) ==
LOC: ANHIMG 09:35
PROVIDERS: PCP Physician Assistant; Visit Provider Physician Assistant
DX: I71.40 Abdominal aortic aneurysm, without rupture, unspecified (principal)
CPT/HCPCS: 76775

== ENCOUNTER 2023-01-24 14:24 | Outpatient (CLI) | payer OTHER, SELFPAY ==
--- NOTE | 2023-01-24 14:30 | ECHO_ITS ---
Patient Info Name: Lacey Elias Age: 52 years : 1970 Gender: Female Ht: 63 in Wt: 300 lbs BSA: 2.55 m2 HR: 92 bpm BP: 173 / 71 mmHg Heart Rhythm: Sinus Rhythm Technical Quality: Poor Exam Date: 01/24/2023 2:34 PM Exam Location: [facility]monary Patient Status: Outpatient Admit Date: 01/24/2023 Staff Ordering Physician: Ever Ferrera DO Drum Stock Clerk: Henrietta Moscoso RDCS Attending Provider: Ever Ferrera DO Referring Physician: Iban FLORES; Exam Type: CA echo dop color flow w con Study Info Indications I35.0 - Nonrheumatic aortic (valve) stenosis Complete two-dimensional, color flow and Doppler transthoracic echocardiogram is performed with contrast to opacify the left ventricle and to improve the deliniation of the left ventricle endocardial borders. Contrast/Agitated Saline Contrast/Ag. Saline: Definity Amount: 3.00 ml Administered By: Henrietta Moscoso RDCS New IV Access: Left Site Condition: IV removed Summary 1. Technically suboptimal study due to poor sonographic images. 2. Definity contrast administered improved wall motion interpretation. 3. Left ventricular chamber dimension is normal. 4. [place] is hypokinetic. 5. Left ventricular systolic function is normal, estimated at 55-60%. 6. The left ventricular diastolic function is grade I diastolic dysfunction. 7. E/e' 12 is mildly elevated. 8. The aortic valve is not well visualized. Cannot determine number of aortic valve leaflets. 9. There is mild aortic valve stenosis base on a peak velocity of 214.18 cm/s, mean gradient of 9 mmHg, and aortic valve area of 1.49 cm2. 10. There is mild aortic valve sclerosis. 11. There is trace mitral valve regurgitation. 12. Mild pulmonary hypertension, estimated pulmonary arterial systolic pressure is 42 mmHg. Left Ventricle E/e' 12 is mildly elevated. Definity contrast administered improved wall motion interpretation. [place] is hypokinetic. Technically suboptimal study due to poor sonographic images. Left ventricular chamber dimension is normal. Left ventricular systolic function is normal, estimated at 55-60%. The left ventricular diastolic function is grade I diastolic dysfunction. Right Ventricle Right ventricular systolic function is normal based on normal TAPSE 1.9 cm. Right ventricular chamber dimension is not well visualized. Left Atria Left atrial chamber dimension is normal. Right Atria Right atrial chamber dimension is normal. Aortic Valve The aortic valve is not well visualized. Cannot determine number of aortic valve leaflets. There is mild aortic valve stenosis base on a peak velocity of 214.18 cm/s, mean gradient of 9 mmHg, and aortic valve area of 1.49 cm2. There is mild aortic valve sclerosis. There is no aortic valve regurgitation. Pulmonic Valve There is no pulmonic regurgitation. Mitral Valve There is no mitral valve stenosis. There is trace mitral valve regurgitation. Tricuspid Valve There is no tricuspid valve regurgitation. Mild pulmonary hypertension, estimated pulmonary arterial systolic pressure is 42 mmHg. Pericardium/Pleural There is no pericardial effusion. Inferior Vena Cava Normal inferior vena cava with >50% collapse upon inspiration consistent with normal right atrial pressure, 5 mmHg. Aorta The aortic root size at the sinus of Valsalva is normal. Left Ventricular Outflow Tract Name Value Normal
[2023-01-24] MEDS: PERFLUTREN LIPID MICROSPHERES 1.5 ML VIAL DILUTED TO 10 ML TOTAL VOLUME IV PUSH (15:30)
--- NOTE | 2023-01-25 09:40 | IVDEFINITY ---
Prior to administration of IV Definity the patient was educated on the risks and benefits of the imaging enhancing agent including potential adverse side effects. The patient verbalized understanding. Allergies were verified. No exclusion criteria were identified and at least one of the following inclusion criteria were met: 1) physician request, 2) patient technically difficult to image (per the [place] [employer]ocardi[employer] guidelines of two or more segments not discernable within the apical view), or 3) questionable left ventricular function. ?
== END 2023-01-24 14:25 | disposition home or self-care (01) ==
LOC: ANHCARD 14:25
PROVIDERS: PCP Physician Assistant; Visit Provider Internal Medicine Cardiovascular Disease
DX: I35.0 Nonrheumatic aortic (valve) stenosis (principal); I27.20 Pulmonary hypertension, unspecified
CPT/HCPCS: C8929; Q9957

== ENCOUNTER 2023-02-08 14:00 | Outpatient (RCR) | payer OTHER, SELFPAY ==
--- NOTE | 2023-01-08 15:10 | OPREHPOC ---
Outpatient Therapy Plan of Care This is a Multidisciplinary Plan of Care that may contain components documented by all disciplines (PT, OT, and ST.) PT Problem 1 PT Problem #1 Knowledge Deficit PT Goal 1 Goal [place] with HEP Target Visit 4 PT Problem 2 PT Problem #2 Pain PT Goal 1 Goal Patient will report no deluca greater than 1/10 with sit to stand activity Target Visit 8 PT Goal 2 Goal Report no pain with supine to sit transfer after sleeping 4+ hours Target Visit 8 PT Problem 3 PT Problem #3 Impaired Gait PT Goal 1 Goal Demonstrate decreasd lateral shit reflective of improve hip strength Target Visit 8 PT Problem 4 PT Problem #4 Impaired Strength PT Goal 1 Goal Improve ty hip abduction strength to 4/5 to improve lateral pelvic stability Target Visit 8 PT Goal 2 Goal Improve ty hip flexion strength to 4+/5 to improve foot clearence Target Visit 8 PT Problem 5 PT Problem #5 Impaired Flexibility PT Goal 1 Goal Improve ty HS 90/90 to -25 degree or better to reduce asymmetrical pelvic pull as pain source Target Visit 8 PT Goal 2 Goal Reduce ty piriformis restriction to minimal to reduce pain secondary to hip mobility imbalance Target Visit 8
--- NOTE | 2023-01-08 15:10 | PTOPEVAL1 ---
Assessment and note entered by Fish Sullivan, PT Evaluation Information Assessment Status Evaluation Diagnosis Low Back pain, R LE radiculopathy Onset 09/28/22 Subjective Information Reports that she has been having back and leg pain for 3 months. Worse when she has been sitting and a little better with movement. All pain is in her left leg when it radiated. She is not currently performing exercise regimen. Denies groin pain or need for AD. Reported Pain Level Pain Score 3: Self Report Assessment PT Clinical Summary Patient signs and symptoms appears stenotic in nature at this time. She is showing hip weakness and decreased gross hip mobility. Will benefit from skilled therapy to address these deficits to improve overall gross mobility and pain free motion with ADLs. Special attention will be given to abdominal pressure given known Abdominal Aneurysm. Plan of Care Interventions Gait Training,Manual Therapy,Neuro Re-education, Patient/Caregiver Education,Therapeutic Activities, Therapeutic Exercise PT Services Indicated Yes Treatment Frequency and 2x/week for 4 weeks Duration These treatments will address the objective and functional deficits as defined above. The patient will be advanced safely and appropriately in order for the patient to progress towards his/her prior level of function. Additional exercises will be introduced and as well as a comprehensive home exercise program upon discharge, if needed, ?to ensure carryover of functional gains achieved in the clinic. This treatment plan has been reviewed and agreement upon by the patient.
--- NOTE | 2023-01-17 15:00 | PCPTNOTE ---
Pt. canceled 01/17/23 appointment noting that she was sick.
--- NOTE | 2023-02-08 14:50 | OPREHPOC ---
Outpatient Therapy Plan of Care This is a Multidisciplinary Plan of Care that may contain components documented by all disciplines (PT, OT, and ST.) PT Problem 1 PT Problem #1 Knowledge Deficit PT Goal 1 Goal [place] with HEP Target Visit 4 Progress Met PT Problem 2 PT Problem #2 Pain PT Goal 1 Goal Patient will report no deluca greater than 1/10 with sit to stand activity Target Visit 8 Progress Met PT Goal 2 Goal Report no pain with supine to sit transfer after sleeping 4+ hours Target Visit 8 Progress Met PT Problem 3 PT Problem #3 Impaired Gait PT Goal 1 Goal Demonstrate decrease lateral shift reflective of improve hip strength Target Visit 8 Progress Met PT Problem 4 PT Problem #4 Impaired Strength PT Goal 1 Goal Improve ty hip abduction strength to 4/5 to improve lateral pelvic stability Target Visit 8 Progress Met PT Goal 2 Goal Improve ty hip flexion strength to 4+/5 to improve foot clearance Target Visit 8 Progress Met PT Problem 5 PT Problem #5 Impaired Flexibility PT Goal 1 Goal Improve ty HS 90/90 to -25 degree or better to reduce asymmetrical pelvic pull as pain source Target Visit 8 Progress Met PT Goal 2 Goal Reduce ty piriformis restriction to minimal to reduce pain secondary to hip mobility imbalance Target Visit 8 Progress Partially Met Comment Still rigid but improved
--- NOTE | 2023-02-08 14:51 | PTOPDC ---
Assessment and note entered by Fish Sullivan, PT Discharge Information Assessment Status Discharge Diagnosis Low Back pain, R LE radiculopathy Onset 09/28/22 Subjective Information Reports that she has been having back and leg pain for 3 months. Worse when she has been sitting and a little better with movement. All pain is in her left leg when it radiated. She is not currently performing exercise regimen. Denies groin pain or need for AD. Reported Pain Level Pain Score 0: Self Report Assessment PT Clinical Summary Patient met all goals for therapy and is suitable for D/C to [facility] at this time. She has had no subjective complaints that limited her functional activity. She has been compliant with [facility] at this time. Plan of Care PT Services Indicated No
== END 2023-02-08 15:03 | disposition home or self-care (01) ==
LOC: ANHPT 14:00
PROVIDERS: PCP Physician Assistant; Visit Provider Physician Assistant
DX: M54.50 Low back pain, unspecified (principal)
CPT/HCPCS: 97110; 97140; 97161; 97530